=== PATIENT | female | born 1940 | race Caucasian/White ===

== ENCOUNTER 2017-11-30 13:23 | Emergency (ER) | payer OTHER, MEDICARE ==
[2017-11-30] MEDS ORDERED: ALBUTEROL 2.5 MG/3 ML NEB SOL ONE (14:07)
[2017-11-30] MEDS ORDERED: METHYLPREDNISOLONE 125 MG INJ ONE (14:07)
[2017-11-30] MEDS ORDERED: IPRATROPIUM BROM 0.5MG/2.5ML ONE (14:07)
--- NOTE | 2017-11-30 14:34 | RAD REPORT ---
EXAM DESCRIPTION: US - Extrem Venous W Compress Omar - 11/30/2017 2:18 pm CLINICAL HISTORY: Chest pain, shortness of breath, leg pain and swelling COMPARISON: None. TECHNIQUE: Real-time sonographic evaluation of the bilateral lower extremity common femoral, superfi cial femoral, popliteal and posterior tibial veins was performed. FINDINGS: Normal compressibility, flow augmentation, phasic flow and spontaneous flow are identified in the left and right lower extremity common femoral, superficial femoral, popliteal and posterior t ibial veins. No intraluminal filling defects seen. IMPRESSION: No DVT in either lower extremity.
--- NOTE | 2017-11-30 14:38 | RAD REPORT ---
EXAM DESCRIPTION: RAD - Chest Single View - 11/30/2017 2:11 pm CLINICAL HISTORY: Shortness of breath, left arm pain COMPARISON: December 2016 TECHNIQUE: AP portable chest image was obtained 1404 hours . FINDINGS: Lung volumes are low similar to the comparison. Very extensive interstitial lung disease i s present. There is an alveolar component in the mid left lung field. Overall pattern is not substant ially different from the comparison. Interstitial edema and infiltrate are both easily masked with th is extent of chronic disease. Heart and vasculature are normal. No measurable pleural effusion and no pneumothorax. No acute bony abnormality seen. No acute aortic findings suspected. IMPRESSION: Very extensive interstitial lung disease throughout both lung [place]. Pattern is not substantially different from comparison.
[2017-11-30 14:39] LABS: ALT/SGPT 31 U/L (12-78); AST/SGOT 28 U/L (15-37); Albumin 2.7 g/dL (3.4-5.0); Alkaline Phosphatase 97 U/L (45-117); BUN Blood Urea Nitrogen 16 mg/dL (7-18); Bicarbonate 37 mmol/L (21-32); Bilirubin Direct 0.2 mg/dL (0-0.2); Bilirubin Total 0.4 mg/dL (0.2-1.0); Glucose Level 137 mg/dL (74-106); Magnesium 2.3 mg/dL (1.8-2.4); NT PRO-BNP 2868 pg/mL (<450); Potassium 3.7 mmol/L (3.5-5.1); Protein, Total 7.2 g/dL (6.4-8.2); Sodium Level 142 mmol/L (136-145); Troponin (Emerg Dept Use Only) < 0.02 ng/mL (0.0-0.045)
[2017-11-30 14:44] LABS: Protime INR 1.16
[2017-11-30 15:17] LABS: Absolute Lymphocytes (CBC) 1.6 K/uL (0.7-4.9); Absolute Monocytes 0.7 K/uL (0.1-1.3); Absolute Neutrophil 10.3 K/uL (1.8-8.0); Basophils % 0.4 % (0-1.3); Eosinophils % 1.4 % (0-4.4); Lymphocytes % 12.8 % (15.3-44.8); MCH 25.2 pg (27.0-35.0); MCV 83.3 fL (80-100); MPV 8.7 fL (7.6-11.3); Monocytes % 5.7 % (3.3-12.3); RBC Red Blood Cell Count 4.68 M/uL (3.86-4.86)
[2017-11-30 15:34] LABS: Platelet Estimate ADEQ; Urine White Blood Cell Casts OK
[2017-11-30] MEDS ORDERED: ACETAMINOPHEN 325 MG TABLET ONE (15:34)
[2017-11-30 15:35] LABS: Anisocytosis 3+; Blood Morphology Comment NOTED (NOT SEEN); Macrocytosis 1+; Ovalocytes 1+; Poikilocytosis 2+; Polychromasia SLIGHT; Spherocyte FEW
--- NOTE | 2017-11-30 16:26 | ER ---
Nurse's Notes [facility] Name: Becca Parada Age: 77 yrs Sex: Female : 1940 Arrival Date: 11/30/2017 Time: 13:24 Bed 28 Private MD: Ross Bryan T Diagnosis: Cellulitis of left lower limb;Chronic obstructive pulmonary disease with (acute) exacerbation Presentation: 11/30 13:29 Presenting complaint: Patient states: SOB x 3 days, BLE pain for months. Pt stated her sv O2 sat at home this morning was 79% and her daughter put her on a mask and it went up after. Transition of care: patient was not received from another setting of care. Onset of symptoms was November 27, 2017. Care prior to arrival: None. 13:29 Method Of Arrival: Wheelchair sv 13:29 Acuity: BEATRIZ 3 sv 14:10 Risk Assessment: Do you want to hurt yourself or someone else? Patient reports no iw desire to harm self or others. Initial Sepsis Screen: Does the patient meet any 2 criteria? No. Patient's initial sepsis screen is negative. Does the patient have a suspected source of infection? No. Patient's initial sepsis screen is negative. Triage Assessment: 15:00 Respiratory: Onset: The symptoms/episode began/occurred this morning. iw Historical: - Allergies: 13:30 Latex, Natural Rubber; sv - PMHx: 13:30 Arthritis; CAD; COPD, psorasis, HTN, arthritis; COPD; Hypertension; Myocardial sv infarction; Pneumonia; - PSHx: 13:30 Heart stents; Cholecystectomy; Hysterectomy; Appendectomy; sv - Immunization history:: Pneumococcal vaccine is up to date, Flu vaccine is up to date. - Social history:: Smoking status: Patient/guardian denies using tobacco. - Ebola Screening: : No symptoms or risks identified at this time. Screenin:09 Abuse screen: Denies threats or abuse. Denies injuries from another. Nutritional iw screening: No deficits noted. Tuberculosis screening: No symptoms or risk factors identified. Fall Risk IV access (20 points). Assessment: 14:07 General: Appears in no apparent distress. Behavior is calm, cooperative. Pain: iw Complains of pain in medial aspect of right calf and medial aspect of left calf. Neuro: Level of Consciousness is awake, alert, obeys commands, Oriented to person, place, time, Moves all extremities. Cardiovascular: Denies chest pain, Patient's skin is warm and dry. Edema is absent. Rhythm is sinus rhythm. Respiratory: Reports shortness of breath at rest on exertion cough that is productive, labored breathing Airway is patent Respiratory effort is even, labored, Respiratory pattern is tachypnea the patient has moderate shortness of breath. GI: Abdomen is non-distended, Abd is soft X 4 quads Patient currently denies diarrhea, nausea, vomiting. Derm: Skin is intact, is fragile, is thin. Musculoskeletal: Range of motion: intact in all extremities. 15:08 Reassessment: Patient appears in no apparent distress at this time. Respiratory: Airway iw is patent Respiratory effort is labored, Respiratory pattern is regular, symmetrical. 16:04 Reassessment: Patient appears in no apparent distress at this time. Patient and/or iw family updated on plan of care and expected duration. Pain level reassessed. Patient is alert, oriented x 3, equal unlabored respirations, skin warm/dry/pink. pt appears more relaxed, respirations even and unlabored Patient denies pain at this time. Patient states feeling better. Patient states symptoms have improved. 17:05 Reassessment: Patient appears in no apparent distress at this time. Patient and/or iw family updated on plan of care and expected duration. Pain level reassessed. Patient is alert, oriented x 3, equal unlabored respirations, skin warm/dry/pink. Dr. Monroy at bedside to discuss POC, pt will be discharged home, per Dr. Monroy. Vital Signs: 13:30 BP 116 / 73; Resp 21; Temp 97.1; Pulse Ox 95% on 3 lpm NC; Weight 50.35 kg; Height 5 sv ft. 2 in. (157.48 cm); Pain 0/10; 14:07 Pulse 89; iw 16:00 BP 115 / 99; Pulse 104; Resp 21 S; Pulse Ox 100% on 3 lpm NC; Pain 0/10; iw 13:30 Body Mass Index 20.30 (50.35 kg, 157.48 cm) sv ED Course: 13:24 Patient arrived in ED. as 13:24 Ross Bryan MD is Private Physician. as 13:30 Triage completed. sv 13:31 Arm band placed on. sv 13:32 Luke Lopez PA is PHCP. jmm 13:32 Teo Parkinson MD is Attending Physician. m 13:33 Kathy Santiago, RN is Primary Nurse. iw 14:02 EKG done, by animal tech. reviewed by Luke RUSSELL. 3 14:05 US Extremity Venous W Compression Omar In Process Unspecified. EDMS 14:09 X-ray completed. Portable x-ray completed in exam room. mh1 14:10 Patient has correct armband on for positive identification. iw 14:10 Inserted saline lock: 22 gauge in left antecubital area, using aseptic technique. Blood iw collected. 14:11 XRAY Chest (1 view) In Process Unspecified. EDMS 16:24 Rai Stein MD is Hospitalizing Provider. m 16:52 REPEAT EKG WAS DONE. 3 17:11 Ross Bryan MD is Referral Physician. m 17:28 No provider procedures requiring assistance completed. IV discontinued, intact, iw bleeding controlled, No redness/swelling at site. Pressure dressing applied. Administered Medications: 14:05 Drug: DuoNeb (3:1) (2.5 mg - 0.5 mg) 3 ml Route: Nebulizer; iw 15:00 Follow up: Response: No adverse reaction; Wheezing diminished iw 14:05 Drug: SOLU-Medrol 125 mg Route: IVP; Site: left antecubital; iw 15:00 Follow up: Response: No adverse reaction iw 15:29 Drug: Tylenol 650 mg Route: PO; hb 16:30 Follow up: Response: No adverse reaction; Pain is decreased iw Outcome: 16:26 Decision to Hospitalize by Provider. [facility] 17:12 Discharge ordered by . m 17:27 Discharged to home via wheelchair, with family. iw 17:27 Condition: good 17:27 Discharge instructions given to patient, family, Instructed on discharge instructions, follow up and referral plans. medication usage, Demonstrated understanding of instructions, follow-up care, medications, Prescriptions given X 2. 17:29 Patient left the ED. iw Signatures: Dispatcher [employer] EDMS Rochelle Mukherjee RN RN sv Mickail, Joel, PA PA [facility] Deanna Guevara 1 Kassy Reynolds as Kathy Santiago RN RN Rae Hudson RN RN Nydia Meeks 3 Corrections: (The following items were deleted from the chart) 16:06 16:00 BP 115 / 99; Pulse 104bpm; Resp 21bpm; Spontaneous; Pain 0/10; iw iw
--- NOTE | 2017-11-30 16:26 | EDPHYS ---
Physician Documentation [facility] Name: Becca Parada Age: 77 yrs Sex: Female : 1940 Arrival Date: 11/30/2017 Time: 13:24 Bed 28 Private MD: Ross Bryan T ED Physician Teo Parkinson HPI: 11/30 13:41 This 77 yrs old Female presents to ER via Wheelchair with complaints of jmm Shortness Of Breath, Leg Pain. 13:41 The patient has shortness of breath at rest. Onset: The symptoms/episode began/occurred jmm gradually, 3 day(s) ago. Duration: The symptoms are continuous. The patient has experienced similar episodes in the past. This is a 77 year old female with a history of CAD, COPD, HTN, that presents to the ED with shortness of breath she attricbutes to COPD. Patient states home medication does not give relief. Patient denies chest pain but complains of months of pain to the lower legs bilaterally. . Historical: - Allergies: 13:30 Latex, Natural Rubber; sv - PMHx: 13:30 Arthritis; CAD; COPD, psorasis, HTN, arthritis; COPD; Hypertension; Myocardial sv infarction; Pneumonia; - PSHx: 13:30 Heart stents; Cholecystectomy; Hysterectomy; Appendectomy; sv - Immunization history:: Pneumococcal vaccine is up to date, Flu vaccine is up to date. - Social history:: Smoking status: Patient/guardian denies using tobacco. - Ebola Screening: : No symptoms or risks identified at this time. ROS: 13:41 Constitutional: Negative for fever, chills, and weight loss, Cardiovascular: Negative jm for chest pain, palpitations, and edema. 13:41 Respiratory: Positive for shortness of breath. 13:41 MS/extremity: Positive for pain. 13:41 All other systems are negative. Exam: 13:41 Head/Face: atraumatic. Chest/axilla: Normal chest wall appearance and motion. jmm 13:41 Constitutional: The patient appears in no acute distress, alert, awake. 13:41 Cardiovascular: Rate: normal, Rhythm: regular. 13:41 Respiratory: mild respiratory distress is noted, Respirations: normal, Breath sounds: are clear throughout. 13:41 Abdomen/GI: Inspection: abdomen appears normal, Bowel sounds: normal, Palpation: abdomen is soft and non-tender. 13:41 Skin: Appearance: Color: normal in color. 13:41 Neuro: Orientation: is normal, Mentation: is normal, Memory: is normal. 13:41 Psych: Behavior/mood is pleasant, cooperative. Vital Signs: 13:30 BP 116 / 73; Resp 21; Temp 97.1; Pulse Ox 95% on 3 lpm NC; Weight 50.35 kg; Height 5 sv ft. 2 in. (157.48 cm); Pain 0/10; 14:07 Pulse 89; iw 16:00 BP 115 / 99; Pulse 104; Resp 21 S; Pulse Ox 100% on 3 lpm NC; Pain 0/10; iw 13:30 Body Mass Index 20.30 (50.35 kg, 157.48 cm) sv MDM: 13:41 Patient medically screened. [facility] 13:41 Data reviewed: vital signs, nurses notes. [facility] 15:47 Data reviewed: lab test result(s), radiologic studies, plain films. [facility] 17:07 ED course: I discussed the patient with Dr. Monroy along with the need for admission. [facility] Dr. Monroy visited with the patient whom advises to discharge the patient with doxycycline 100 mg. . 17:07 Counseling: I had a detailed discussion with the patient and/or guardian regarding: the [facility] historical points, exam findings, and any diagnostic results supporting the discharge/admit diagnosis, lab results, radiology results, the need for outpatient follow up, to return to the emergency department if symptoms worsen or persist or if there are any questions or concerns that arise at home. 17:07 Response to treatment: the patient's symptoms have mildly improved after treatment. [facility] 11/30 13:41 Order name: Basic Metabolic Panel [facility] 11/30 13:41 Order name: CBC with Diff; Complete Time: 15:38 [facility] 11/30 13:41 Order name: LFT's; Complete Time: 14:40 [facility] 11/30 13:41 Order name: Magnesium; Complete Time: 14:40 [facility] 11/30 13:41 Order name: NT PRO-BNP; Complete Time: 14:40 [facility] 11/30 13:41 Order name: PT-INR; Complete Time: 15:14 [facility] 11/30 13:41 Order name: Troponin (emerg Dept Use Only); Complete Time: 14:40 [facility] 11/30 13:41 Order name: XRAY Chest (1 view); Complete Time: 14:40 [facility] 11/30 13:42 Order name: Basic Metabolic Panel; Complete Time: 14:40 EDNM 11/30 13:50 Order name: US Extremity Venous W Compression Omar; Complete Time: 14:36 [facility] 11/30 14:28 Order name: Occult Blood--Ancillary; Complete Time: 15:49 eb 11/30 15:21 Order name: CBC Smear Scan; Complete Time: 15:38 EDMS 11/30 13:41 Order name: EKG; Complete Time: 13:42 [facility] 11/30 13:41 Order name: Cardiac monitoring; Complete Time: 14:28 [facility] 11/30 13:41 Order name: EKG - Nurse/Tech; Complete Time: 14:05 [facility] 11/30 13:41 Order name: IV Saline Lock; Complete Time: 14:05 [facility] 11/30 13:41 Order name: Labs collected and sent; Complete Time: 14:06 [facility] 11/30 13:41 Order name: O2 Per Protocol; Complete Time: 14:06 [facility] 11/30 13:41 Order name: O2 Sat Monitoring; Complete Time: 14:06 [facility] 11/30 15:43 Order name: EKG - Nurse/Tech; Complete Time: 16:49 jmm Administered Medications: 14:05 Drug: DuoNeb (3:1) (2.5 mg - 0.5 mg) 3 ml Route: Nebulizer; iw 15:00 Follow up: Response: No adverse reaction; Wheezing diminished iw 14:05 Drug: SOLU-Medrol 125 mg Route: IVP; Site: left antecubital; iw 15:00 Follow up: Response: No adverse reaction iw 15:29 Drug: Tylenol 650 mg Route: PO; hb 16:30 Follow up: Response: No adverse reaction; Pain is decreased iw Disposition: 11/30/17 17:12 Discharged to Home. Impression: Cellulitis of left lower limb, Chronic obstructive pulmonary disease with (acute) exacerbation. - Condition is Stable. - Discharge Instructions: Cellulitis, Adult, Chronic Obstructive Pulmonary Disease Exacerbation. - Prescriptions for Prednisone 20 mg Oral Tablet - take 3 tablet by ORAL route once daily for 5 days; 15 tablet. Doxycycline Hyclate 100 mg Oral Tablet - take 1 tablet by ORAL route every 12 hours; 20 tablet. - Medication Reconciliation Form, Thank You Letter, Antibiotic Education, Prescription Opioid Use form. - Follow up: Ross Bryan MD; When: Tomorrow; Reason: Recheck today's complaints, Continuance of care, Re-evaluation by your physician. Addendum: 12/02/2017 13:29 Co-signature as Attending Physician, Teo Parkinson MD I agree with the assessment and k dr plan of care. Signatures: Dispatcher [employer] EDMS Rochelle Mukherjee, RN RN Teo Parkinson MD MD [facility] Luke Lopez PA PA [facility] Kathy Santiago RN RN Rae Hudson RN RN Corrections: (The following items were deleted from the chart) 11/30 17:08 16:23 ED course: I discussed the patient with Dr. Stein whom accepted admission. . [facility] 17: 16:26 Hospitalization Ordered by Rai Stein MD for Observation. Preliminary diagnosis [facility] is Chronic obstructive pulmonary disease with (acute) exacerbation; Cellulitis of left lower limb. Bed requested for Telemetry/MedSurg (observation). Status is Observation. Condition is Stable. Problem is an acute exacerbation. Symptoms are unchanged. UTI on Admission? No. [facility] 17:29 17:12 11/30/2017 17:12 Discharged to Home. Impression: Cellulitis of left lower limb; iw Chronic obstructive pulmonary disease with (acute) exacerbation. Condition is Stable. Forms are Medication Reconciliation Form, Thank You Letter, Antibiotic Education, Prescription Opioid Use. Follow up: Ross Bryan; When: Tomorrow; Reason: Recheck today's complaints, Continuance of care, Re-evaluation by your physician. [facility]
--- NOTE | 2017-11-30 16:52 | EKG ---
Test Date: 2017-11-30 Test Time: 13:51:20 Towel Hemmer: PANCHO MEASUREMENT RESULTS: Intervals: Rate: 100 LA: 124 QRSD: 78 QT: 350 QTc: 451 [place]: P: 10 LA: 124 QRS: -34 T: -1 INTERPRETIVE STATEMENTS: Sinus rhythm with premature atrial complexes with aberrant conduction Left axis deviation Pulmonary disease pattern Nonspecific ST and T wave abnormality Abnormal ECG Compared to ECG 01/16/2017 22:21:10 Sinus tachycardia no longer present ST (T wave) deviation still present Electronically Signed On 11-30-17 16:51:38 CDT by Yrn Rivera
[2017-11-30 17:39] VITALS: TEMP 97.1
[2017-11-30 17:41] VITALS: BP 115/99; O2SAT 100
--- NOTE | 2017-12-01 08:16 | EKG ---
Test Date: 2017-11-30 Test Time: 16:32:08 [employer]: PANCHO MEASUREMENT RESULTS: Intervals: Rate: 102 ID: [id number] QRSD: 80 QT: 338 QTc: 440 [place]: P: 25 ID: [id number] QRS: -33 T: 76 INTERPRETIVE STATEMENTS: Sinus tachycardia with occasional premature ventricular complexes Left axis deviation Pulmonary disease pattern Nonspecific ST abnormality Abnormal ECG Compared to ECG 11/30/2017 13:51:20 Ventricular premature complex(es) now present Sinus rhythm no longer present Atrial premature complex(es) no longer present Electronically Signed On 12-01-17 08:15:18 CDT by Yrn Rivera
== END 2017-11-30 17:29 | disposition home or self-care (01) ==
LOC: ER 13:23 → UNDOADMOB 16:28 → ERHOLD 16:28
DX: J44.1 Chronic obstructive pulmonary disease with (acute) exacerbation (principal); L03.116 Cellulitis of left lower limb; I10 Essential (primary) hypertension; I25.2 Old myocardial infarction; Z95.818 Presence of other cardiac implants and grafts; Z91.040 Latex allergy status; Z91.048 Other nonmedicinal substance allergy status
CPT/HCPCS: 36415; 71045; 80048; 80076; 82272; 83735; 83880; 84484; 85025; 85610; 93005 ×2; 93970; 94640; 96374; 99285; J2930

== ENCOUNTER 2017-12-11 11:36 | Inpatient (IN) | payer OTHER, MEDICARE ==
[2017-12-11] MEDS ORDERED: METOPROLOL TARTRATE 5 MG/5 ML INJ IV ONE ×2 (12:00→13:52)
[2017-12-11] MEDS ORDERED: IPRATROPIUM BROM 0.5MG/2.5ML ONE (12:10)
[2017-12-11] MEDS ORDERED: ALBUTEROL 2.5 MG/3 ML NEB SOL ONE (12:10)
[2017-12-11 12:23] LABS: Absolute Lymphocytes (CBC) 0.6 K/uL (0.7-4.9); Absolute Monocytes 0.8 K/uL (0.1-1.3); Absolute Neutrophil 20.8 K/uL (1.8-8.0); Basophils % 0.2 % (0-1.3); Eosinophils % 0.2 % (0-4.4); Hematocrit 39.6 % (36.0-45.0); Lymphocytes % 2.8 % (15.3-44.8); MCH 26.3 pg (27.0-35.0); MCV 83.6 fL (80-100); MPV 8.5 fL (7.6-11.3); Monocytes % 3.4 % (3.3-12.3); RBC Red Blood Cell Count 4.74 M/uL (3.86-4.86)
[2017-12-11 12:27] LABS: Protime INR 1.18
[2017-12-11 12:33] LABS: Arterial Blood Carboxyhemoglob 1.4 % (0-1.5); Blood Gas Oxyhemoglobin 92.7 % (94-97); Blood O2 Saturation 94.9 % (92-98.5)
--- NOTE | 2017-12-11 12:33 | RAD REPORT ---
EXAM DESCRIPTION: Sunday Single View12/11/2017 12:27 pm CLINICAL HISTORY: Shortness of breath COMPARISON: November 30, 2017 FINDINGS: Extensive bilateral pulmonary opacities appear minimally improved since the prior exam. T he heart is mildly enlarged IMPRESSION: Minimal improvement in extensive bilateral pulmonary opacities. I suspect that most if not all of this is chronic.
[2017-12-11 12:39] LABS: Albumin 2.9 g/dL (3.4-5.0); Bilirubin Direct 0.2 mg/dL (0-0.2); Bilirubin Total 0.6 mg/dL (0.2-1.0); Magnesium 2.2 mg/dL (1.8-2.4); Potassium 3.1 mmol/L (3.5-5.1); Protein, Total 7.1 g/dL (6.4-8.2); Troponin (Emerg Dept Use Only) 0.03 ng/mL (0.0-0.045)
[2017-12-11] MEDS ORDERED: FUROSEMIDE 20 MG/ 2ML VIAL ONE (13:51)
[2017-12-11] MEDS ORDERED: POTASSIUM 25 MEQ EFFERV TAB ONE (13:52)
[2017-12-11 14:32] LABS: Anisocytosis 2+; Blood Morphology Comment NOTED (NOT SEEN); Ovalocytes 2+; Platelet Estimate INCR; Urine White Blood Cell Casts OK
[2017-12-11] MEDS ORDERED: SODIUM CHLORIDE 0.9% 10ML INJ IV PRN (14:57)
[2017-12-11] MEDS ORDERED: IPRATROPIUM BROM 0.5MG/2.5ML NEB PRN (14:57)
[2017-12-11] MEDS ORDERED: ONDANSETRON 4 MG/2 ML VIAL IV PRN (14:57)
[2017-12-11] MEDS ORDERED: ALBUTEROL 2.5 MG/3 ML NEB SOL NEB PRN (14:57)
--- NOTE | 2017-12-11 15:14 | EDPHYS ---
Physician Documentation [facility] Name: Becca Parada Age: 77 yrs Sex: Female : 1940 Arrival Date: 12/11/2017 Time: 11:39 Bed 20 Private MD: ED Physician Go Clarke HPI: 12/11 15:51 This 77 yrs old Female presents to ER via EMS with complaints of Shortness Of gs Breath. 15:51 Onset: The symptoms/episode began/occurred acutely. Duration: The symptoms are gs continuous. The patient's shortness of breath has no apparent modifying factors. Associated signs and symptoms: Pertinent positives: dizziness, Pertinent negatives: fever. Severity of symptoms: At their worst the symptoms were severe in the emergency department the symptoms are unchanged. The patient has experienced similar episodes in the past, a few times. The patient has not recently seen a physician. Historical: - Allergies: 12:15 Latex, Natural Rubber; bp - Home Meds: 12:15 aspirin 81 mg Oral tab once daily [Active]; furosemide 80 mg Oral tab 1 tab once daily bp [Active]; Home O2 [Active]; ipratropium bromide 0.02 % inhalation soln 2.5 mL 4 times per day [Active]; Lipitor 10 mg Oral tab 1 tab once daily [Active]; metoprolol tartrate 50 mg Oral tab 1 tab once daily [Active]; Mucinex DM 30-600 mg Oral Tb12 1 tab every 12 hours [Active]; Nasonex 50 mcg/actuation Nasal spry 2 sprays once daily [Active]; pantoprazole 40 mg Oral TbEC 1 tab once daily [Active]; Perforomist 20 mcg/2 mL inhalation nebu 2 mL 2 times per day [Active]; prednisone 10 mg Oral tab 1 tab once daily [Active]; ProAir HFA inhalation 2 puffs every 6 hours [Active]; Spiriva with HandiHaler 18 mcg inhalation CpDv 1 cap once daily [Active]; theophylline 300 mg Oral Tb12 1 tab every 12 hours [Active]; spironolactone 25 mg Oral tab 2 tabs 2 times per day [Active]; - PMHx: 12:15 Arthritis; CAD; COPD; Hypertension; Myocardial infarction; Pneumonia; PULMONARY bp FIBROSIS; - Immunization history:: Adult Immunizations up to date. - Social history:: Smoking status: Patient/guardian denies using tobacco. - Ebola Screening: : Patient negative for fever greater than or equal to 101.5 degrees Fahrenheit, and additional compatible Ebola Virus Disease symptoms Patient denies exposure to infectious person Patient denies travel to an Ebola-affected area in the 21 days before illness onset No symptoms or risks identified at this time. ROS: 15:51 All other systems are negative. gs Exam: 15:51 Head/Face: Normocephalic, atraumatic. Eyes: Pupils equal round and reactive to light, gs extra-ocular motions intact. Lids and lashes normal. Conjunctiva and sclera are non-icteric and not injected. Cornea within normal limits. Periorbital areas with no swelling, redness, or edema. ENT: Nares patent. No nasal discharge, no septal abnormalities noted. Tympanic membranes are normal and external auditory canals are clear. Oropharynx with no redness, swelling, or masses, exudates, or evidence of obstruction, uvula midline. Mucous membranes moist. Neck: Trachea midline, no thyromegaly or masses palpated, and no cervical lymphadenopathy. Supple, full range of motion without nuchal rigidity, or vertebral point tenderness. No Meningismus. Chest/axilla: Normal chest wall appearance and motion. Nontender with no deformity. No lesions are appreciated. 15:51 Abdomen/GI: Soft, non-tender, with normal bowel sounds. No distension or tympany. No guarding or rebound. No evidence of tenderness throughout. Back: No spinal tenderness. No costovertebral tenderness. Full range of motion. Skin: Warm, dry with normal turgor. Normal color with no rashes, no lesions, and no evidence of cellulitis. MS/ Extremity: Pulses equal, no cyanosis. Neurovascular intact. Full, normal range of motion. Neuro: Awake and alert, GCS 15, oriented to person, place, time, and situation. Cranial nerves II-XII grossly intact. Motor strength 5/5 in all extremities. Sensory grossly intact. Cerebellar exam normal. Normal gait. 15:51 Constitutional: The patient appears alert, awake, in obvious distress, severely distressed. 15:51 Cardiovascular: Rate: tachycardic, Rhythm: irregular, Pulses: no pulse deficits are appreciated, Edema: is not appreciated. 15:51 ECG was reviewed by the Attending Physician. 15:51 Respiratory: severe repiratory distress is noted, Respirations: labored breathing, intercostal retractions, Breath sounds: rales, that are moderate, are scattered. Vital Signs: 11:59 BP 153 / 71; Pulse 148; Resp 36; Temp 97.6; Pulse Ox 89% on R/A; Weight 68.04 kg; bp 12:41 BP 127 / 99; Pulse 131; Resp 33; Pulse Ox 97% ; bp 14:11 BP 132 / 77; Pulse 131; Resp 31; Pulse Ox 95% on 2 lpm NC; bp 14:44 BP 136 / 91; Pulse 124; Resp 41; Pulse Ox 94% on 2 lpm NC; bp 15:59 BP 123 / 74; Pulse 110; Resp 27; Pulse Ox 96% on 2 lpm NC; bp MDM: 11:51 Patient medically screened. gs 15:51 Differential diagnosis: CHF exacerbation, Chronic Obstructive Pulmonary Disease gs pneumonia, pulmonary edema. Data reviewed: vital signs, nurses notes. 12/11 11:53 Order name: Basic Metabolic Panel; Complete Time: 13:35 gs 12/11 11:53 Order name: CBC with Diff; Complete Time: 14:36 12/11 11:53 Order name: LFT's; Complete Time: 13:35 gs 12/11 11:53 Order name: Magnesium; Complete Time: 13:35 gs 12/11 11:53 Order name: NT PRO-BNP; Complete Time: 13:35 gs 12/11 11:53 Order name: PT-INR; Complete Time: 13:35 12/11 11:53 Order name: Troponin (emerg Dept Use Only); Complete Time: 13:35 12/11 11:53 Order name: ABG; Complete Time: 13:35 12/11 12:01 Order name: Lactate; Complete Time: 14:36 bp 12/11 12:38 Order name: CBC Smear Scan; Complete Time: 14:36 EDMS 12/11 15:08 Order name: Basic Metabolic Panel [facility]SC 12/11 15:08 Order name: Basic Metabolic Panel [facility] 12/11 15:08 Order name: Basic Metabolic Panel [facility] 12/11 15:08 Order name: Basic Metabolic Panel [facility] 12/11 15:08 Order name: CKMB Creatine Kinase MB [facility] 12/11 15:08 Order name: CKMB Creatine Kinase MB [facility] 12/11 15:08 Order name: CKMB Creatine Kinase MB [facility] 12/11 15:08 Order name: Creatine Phosphokinase [facility] 12/11 15:08 Order name: Creatine Phosphokinase [facility] 12/11 15:08 Order name: Lipid Profile [facility] 12/11 15:08 Order name: Lipid Profile [facility] 12/11 15:08 Order name: Magnesium [facility] 12/11 15:08 Order name: Magnesium [facility] 12/11 15:08 Order name: Magnesium [facility] 12/11 15:08 Order name: Blood Culture [facility] 12/11 15:08 Order name: Urine Culture [facility] 12/11 15:08 Order name: Sputum Culture [facility] 12/11 15:09 Order name: Theophylline Level [facility] 12/11 15:09 Order name: T4 Free [facility] 12/11 15:09 Order name: Thyroid Stimulating Hormone [facility] 12/11 11:53 Order name: XRAY Chest (1 view); Complete Time: 12:39 12/11 11:53 Order name: EKG; Complete Time: 11:54 12/11 11:53 Order name: Cardiac monitoring; Complete Time: 11:56 12/11 11:53 Order name: EKG - Nurse/Tech; Complete Time: 12:10 12/11 11:53 Order name: IV Saline Lock; Complete Time: 11:56 12/11 11:53 Order name: Labs collected and sent; Complete Time: 12:10 12/11 11:53 Order name: O2 Per Protocol; Complete Time: 11:56 12/11 11:53 Order name: O2 Sat Monitoring; Complete Time: 11:56 12/11 12:56 Order name: Labs - recollect needed: Lactate; Complete Time: 13:07 12/11 15:09 Order name: CONS Pharmacy Consult [facility] 12/11 15:09 Order name: CONS Physician Consult [facility] 12/11 15:09 Order name: CONS Physician Consult [facility] 12/11 15:09 Order name: Respiratory Therapy Consult [facility] 12/11 15:09 Order name: Heart Healthy [facility] 12/11 15:09 Order name: Troponin I [facility] 12/11 15:15 Order name: Social Service Consult [facility] EC:51 Rate is 110 beats/min. Rhythm is irregular. Clinical impression: irr irr looks like gs afib but some qrs appear to have p waves some do not. Interpreted by me. Administered Medications: 11:57 Drug: Lopressor 5 mg Route: IVP; Site: right wrist; bp 12:10 Follow up: Response: No adverse reaction bp 12:10 Drug: Albuterol 2.5 mg Route: Inhalation; bp 12:10 Drug: AtroVENT Aerosol 0.5 mg Route: Inhalation; bp 13:50 Drug: Lopressor 5 mg Route: IVP; Site: left hand; bp 16:00 Follow up: Response: No adverse reaction bp 13:50 Drug: Potassium Effervescent Tablet 50 mEq Route: PO; bp 16:01 Follow up: Response: No adverse reaction bp 13:50 Drug: Lasix 20 mg Route: IVP; Site: left hand; bp 16:01 Follow up: Response: No adverse reaction bp Disposition: 15:51 Critical Care:. gs Disposition: 12/11/17 15:11 Hospitalization ordered by Tremayne Rhodes for Inpatient Admission. Preliminary diagnosis are Paroxysmal atrial fibrillation, Systolic (congestive) heart failure. - Bed requested for Telemetry/MedSurg (Inpatient). - Status is Inpatient Admission. bp - Condition is Stable. - Problem is new. - Symptoms have improved. UTI on Admission? No Critical care time excluding procedures: 15:51 Critical care time: Bedside Care: 10 minutes, Consultation: 10 minutes, Family gs Intervention: 10 minutes. Total time: 30 minutes Signatures: Dispatcher [employer] EDMS Nahomy Chan Irene, RN RN Go Clarke MD MD gs Peltier, Brian, RN RN bp Corrections: (The following items were deleted from the chart) 15:49 15:11 Hospitalization Ordered by Tremayne Rhodes DO for Inpatient Admission. Preliminary bd diagnosis is Paroxysmal atrial fibrillation; Systolic (congestive) heart failure. Bed requested for Telemetry/MedSurg (Inpatient). Status is Inpatient Admission. Condition is Stable. Problem is new. Symptoms have improved. UTI on Admission? No. gs 17:34 15:49 12/11/2017 15:11 Hospitalization Ordered by Tremayne Rhodes DO for Inpatient bp Admission. Preliminary diagnosis is Paroxysmal atrial fibrillation; Systolic (congestive) heart failure. Bed requested for Telemetry/MedSurg (Inpatient). Status is Inpatient Admission. Condition is Stable. Problem is new. Symptoms have improved. UTI on Admission? No. bd
--- NOTE | 2017-12-11 15:14 | ER ---
Nurse's Notes [facility] Name: Becca Parada Age: 77 yrs Sex: Female : 1940 Arrival Date: 12/11/2017 Time: 11:39 Bed 20 Private MD: Diagnosis: Paroxysmal atrial fibrillation;Systolic (congestive) heart failure Presentation: 12/11 11:42 Presenting complaint: EMS states: SHORTNESS OF BREATH AND NAUSEA/VOMITING. Transition bp of care: patient was not received from another setting of care. Onset of symptoms is unknown. Risk Assessment: Do you want to hurt yourself or someone else? Patient reports no desire to harm self or others. Initial Sepsis Screen: Does the patient meet any 2 criteria? HR > 90 bpm. Does the patient have a suspected source of infection? No. Patient's initial sepsis screen is negative. Care prior to arrival: None. 11:42 Method Of Arrival: EMS: [facility] bp 11:42 Acuity: BEATRIZ 2 bp Triage Assessment: 11:42 General: Appears distressed, uncomfortable, Behavior is cooperative, appropriate for bp age, anxious. Pain: Denies pain. Cardiovascular: Rhythm is atrial fibrillation with rapid ventricular response. Respiratory: Reports shortness of breath cough that is productive, Onset: The symptoms/episode began/occurred this morning, the patient has mild shortness of breath. Historical: - Allergies: 12:15 Latex, Natural Rubber; bp - Home Meds: 12:15 aspirin 81 mg Oral tab once daily [Active]; furosemide 80 mg Oral tab 1 tab once daily bp [Active]; Home O2 [Active]; ipratropium bromide 0.02 % inhalation soln 2.5 mL 4 times per day [Active]; Lipitor 10 mg Oral tab 1 tab once daily [Active]; metoprolol tartrate 50 mg Oral tab 1 tab once daily [Active]; Mucinex DM 30-600 mg Oral Tb12 1 tab every 12 hours [Active]; Nasonex 50 mcg/actuation Nasal spry 2 sprays once daily [Active]; pantoprazole 40 mg Oral TbEC 1 tab once daily [Active]; Perforomist 20 mcg/2 mL inhalation nebu 2 mL 2 times per day [Active]; prednisone 10 mg Oral tab 1 tab once daily [Active]; ProAir HFA inhalation 2 puffs every 6 hours [Active]; Spiriva with HandiHaler 18 mcg inhalation CpDv 1 cap once daily [Active]; theophylline 300 mg Oral Tb12 1 tab every 12 hours [Active]; spironolactone 25 mg Oral tab 2 tabs 2 times per day [Active]; - PMHx: 12:15 Arthritis; CAD; COPD; Hypertension; Myocardial infarction; Pneumonia; PULMONARY bp FIBROSIS; - Immunization history:: Adult Immunizations up to date. - Social history:: Smoking status: Patient/guardian denies using tobacco. - Ebola Screening: : Patient negative for fever greater than or equal to 101.5 degrees Fahrenheit, and additional compatible Ebola Virus Disease symptoms Patient denies exposure to infectious person Patient denies travel to an Ebola-affected area in the 21 days before illness onset No symptoms or risks identified at this time. Screenin:57 Abuse screen: Denies threats or abuse. Denies injuries from another. Nutritional bp screening: No deficits noted. Tuberculosis screening: No symptoms or risk factors identified. Fall Risk None identified. Assessment: 11:58 General: Appears distressed, uncomfortable, slender, Behavior is cooperative, bp appropriate for age, anxious. Pain: Denies pain. Neuro: Level of Consciousness is awake, alert, obeys commands, Oriented to person, place, time, situation, Appropriate for age. Cardiovascular: Rhythm is atrial fibrillation with rapid ventricular response. Respiratory: Airway is patent Respiratory effort is even, labored, Respiratory pattern is symmetrical, Breath sounds with crackles bilaterally. GI: No signs and/or symptoms were reported involving the gastrointestinal system. : No signs and/or symptoms were reported regarding the genitourinary system. EENT: No deficits noted. Derm: No deficits noted. Musculoskeletal: Circulation, motion, and sensation intact. Range of motion: intact in all extremities. 12:41 Reassessment: ALL CURRENT ORDERS COMPLETED, PT REMAINS IN AFIB. RESULTS PENDING. bp 14:10 Reassessment: ALL CURRENT ORDERS COMPLETED, DISPO PENDING. PT REMAINS IN LOW AFIB WITH bp RVR. 14:44 Reassessment: ADMIT MD AT B/S. bp 16:00 Reassessment: PHLEBOTOMY AT B/S, ADMIT BED PENDING. bp Vital Signs: 11:59 BP 153 / 71; Pulse 148; Resp 36; Temp 97.6; Pulse Ox 89% on R/A; Weight 68.04 kg; bp 12:41 BP 127 / 99; Pulse 131; Resp 33; Pulse Ox 97% ; bp 14:11 BP 132 / 77; Pulse 131; Resp 31; Pulse Ox 95% on 2 lpm NC; bp 14:44 BP 136 / 91; Pulse 124; Resp 41; Pulse Ox 94% on 2 lpm NC; bp 15:59 BP 123 / 74; Pulse 110; Resp 27; Pulse Ox 96% on 2 lpm NC; bp ED Course: 11:39 Patient arrived in ED. bp 11:43 Triage completed. bp 11:44 Go Clarke MD is Attending Physician. gs 11:48 Curly Donohue, KATHARINE is Primary Nurse. bp 11:49 Patient has correct armband on for positive identification. Placed in gown. Bed in low mh5 position. Call light in reach. Side rails up X2. Warm blanket given. spindraw operator on. Pulse ox on. NIBP on. 11:57 Inserted saline lock: 20 gauge in right wrist, using aseptic technique. Blood collected.bp 12:00 Arm band placed on. bp 12:11 Initial lab(s) drawn, by wv, sent to lab. Inserted saline lock: 22 gauge in left hand, jl7 using aseptic technique. Blood collected. 12:25 X-ray completed. Portable x-ray completed in exam room. Patient tolerated procedure mh1 well. 12:25 EKG done, by shop service technician. reviewed by Go Clarke MD. at1 12:28 XRAY Chest (1 view) In Process Unspecified. EDMS 13:06 Lab(s) recollected, sent to lab. 5 15:10 Tremayne Rhodes DO is Hospitalizing Provider. gs 17:07 No provider procedures requiring assistance completed. Patient admitted, IV remains in bp place. Administered Medications: 11:57 Drug: Lopressor 5 mg Route: IVP; Site: right wrist; bp 12:10 Follow up: Response: No adverse reaction bp 12:10 Drug: Albuterol 2.5 mg Route: Inhalation; bp 12:10 Drug: AtroVENT Aerosol 0.5 mg Route: Inhalation; bp 13:50 Drug: Lopressor 5 mg Route: IVP; Site: left hand; bp 16:00 Follow up: Response: No adverse reaction bp 13:50 Drug: Potassium Effervescent Tablet 50 mEq Route: PO; bp 16:01 Follow up: Response: No adverse reaction bp 13:50 Drug: Lasix 20 mg Route: IVP; Site: left hand; bp 16:01 Follow up: Response: No adverse reaction bp Outcome: 15:11 Decision to Hospitalize by Provider. 17:06 Admitted to Tele accompanied by tech, family with patient, via stretcher, room 419, bp with chart, Report called to EVON ALCANTAR 17:06 Condition: stable 17:06 Instructed on the need for admit. 17:34 Patient left the ED. bp Signatures: Dispatcher [employer] EDMS Deanna Guevara mh1 Juanita Segura, safety lead EKG Tat1 Nasima Reynolds5 Kirk Gallo, RN RN jl7 Go Clarke MD MD gs Peltier, Brian RN RN bp Corrections: (The following items were deleted from the chart) 16:18 16:00 Reassessment: PHLEBOTOMY AT B/S, ADMIT IN B/S bp bp
--- NOTE | 2017-12-11 15:15 | P.HP ---
Certification for Inpatient Patient admitted to: Inpatient With expected LOS: >2 Midnights Patient will require the following post-hospital care: Other (Skilled facility versus home) Practitioner: I am a practitioner with admitting privileges, knowledge of patient current condition, hospital course, and medical plan of care. Services: Services provided to patient in accordance with Admission requirements found in Title 42 Section 412.3 of the Code of Federal Regulations Patient History Date of Service: 12/11/17 Primary Care Provider: Dr. Bryan; Pulmonary-Dr. Pina, Cardiology-Dr. Carlson( [facility]) Reason for admission: Shortness of breath History of Present Illness: 77-year-old female presented to emergency room with shortness of breath. Patient with multiple medical problems including CHF, COPD, chronic steroid use, CAD with prior stent hypertension and hyperlipidemia. Over the last several days patient has been noticing increasing shortness of breath. She takes multiple medications for COPD. She is without relief. Patient denies any significant chest pain. Some palpitations noted. She reported some nausea. She also reports edema to the lower extremity. She came to the ER for evaluation. In the ER she is found to be in new onset atrial fibrillation with a rate around 130. Patient was given Lopressor. White count elevated at 22.3 with a hemoglobin of 12.5. Sodium 137, potassium 3.1, BUN of 24, creatinine 0.9 with a GFR 61. Glucose 126. Troponin unremarkable. BNP elevated at 3600. Lactate within normal range. Pro calcitonin pending. Chest x-ray showed possible bilateral opacity. Patient remained stable with treatment in the emergency room. Patient admitted for further treatment. When I saw the patient ER, she appeared stable. Daughter was at bedside. Patient reports no prior history of atrial fibrillation. Patient reports a history of CAD with prior stent. Patient takes multiple medications for COPD. She is steroid dependent. Allergies Latex, Natural Rubber Allergy (Mild, Verified 11/05/16 23:23) Hives/Rash Home medications list reviewed: Yes Home Medications: Albuterol Sulfate [Proair Hfa] 2 puff PO QIDP PRN 11/05/16 Aspirin Chewable [Aspirin Chewable*] 1 tab PO DAILY 11/05/16 Atorvastatin Calcium [Lipitor] 10 mg PO BEDTIME 11/05/16 Clopidogrel Bisulfate [Plavix*] 75 mg PO DAILY 11/05/16 Furosemide 1 tab PO DAILY 11/05/16 Ipratropium [place] 1 unit IH BID 11/05/16 Metoprolol Tartrate [Lopressor*] 1 tab PO DAILY 11/05/16 Pantoprazole Sodium 1 tab PO DAILY 11/05/16 Tiotropium [place] [Spiriva] 1 puff PO DAILY 11/05/16 Calcium Carbonate/Vitamin D3 [Calcium 500 + Vit D Caplet] 1 each PO DAILY Guaifenesin/Dextromethorphan [Mucinex Dm ER 1,200-60 mg Tab] 0.5 tab PO BID Mometasone Furoate [Nasonex] 2 spray NS DAILY 01/17/17 Performist 1 unit IH BID 01/17/17 Promethazine HCl/Codeine [Prometh-Codein 6.25-10 mg/5 ml] 5 ml PO TIDP PRN 01/17 levoFLOXacin [Levaquin*] 750 mg PO DAILY #7 tab 01/18/17 predniSONE [Prednisone*] 10 mg PO BID #20 tab 01/18/17 - Past Medical/Surgical History Diabetic: No -: CAD with HI w/ stent x2 01/13/2016 -: HTN -: COPD with steroid dependence -: Hyperlipidemia -: Arthritis -: Cataracts -: GERD -: CHF -: Former smoker -: Appendectomy -: Cholecystectomy -: Hysterectomy -: niles cataract sx Psychosocial/ Personal History: Patient lives with her son. She is a . She has 3 children. - Family History Father -: Hypertension, Liver disease, Kidney disease Notes: cirrohsis Mother -: Heart disease, Lung disease Notes: HI - Social History Smoking Status: Former smoker Alcohol use: No CD- Drugs: No Caffeine use: Yes Place of Residence: Home Review of Systems General: Weakness, Malaise, As per HPI Eyes: Unremarkable ENT: Nose Congestion, As per HPI Respiratory: Cough, Shortness of Breath, SOB with Excertion, Wheezing, As per HPI Cardiovascular: Palpitations, As per HPI Gastrointestinal: Nausea, Unremarkable Genitourinary: As per HPI Musculoskeletal: Pedal edema, As per HPI Integumentary: Unremarkable Neurological: Weakness, As per HPI Lymphatics: Unremarkable Physical Examination - Physical Exam General: Alert, Cooperative, Cachectic, Mild distress HEENT: Atraumatic, Normocephalic, Mucous membr. moist/pink Neck: Supple Respiratory: Expiratory wheezes (Bilateral) Cardiovascular: Irregular heart rate/rhythm (Atrial fibrillation rate 120-130) Gastrointestinal: Normal bowel sounds, Soft and benign, Non-distended, No tenderness, No masses, No rebound, No guarding Musculoskeletal: No erythema, No tenderness, No warmth Integumentary: No warmth, Tenderness/swelling (Edema to the feet bilateral) Neurological: Normal speech, Normal strength at 5/5 x4 extr, Normal tone, Normal affect - Studies Laboratory Data (last 24 hrs) 12/11/17 12:05: PT 13.9 H, INR 1.18 12/11/17 12:05: WBC 22.3 H* D, Hgb 12.5, Hct 39.6, Plt Count 427 H D 12/11/17 12:05: Sodium 137, Potassium 3.1 L, BUN 24 H, Creatinine 0.90, Glucose 126 H, Magnesium 2.2, Total Bilirubin 0.6, AST 23, ALT 24, Alkaline Phosphatase 91 Assessment and Plan - Plan Impression: Shortness of breath with acute on chronic respiratory failure secondary to COPD exacerbation and possible acute on chronic systolic CHF complicated with new onset atrial fibrillation and possible bilateral pneumonia CAD with prior stent Hypertension COPD with chronic steroid use Hyperlipidemia GERD Nausea Plan: Shortness of breath with acute on chronic respiratory failure secondary to COPD exacerbation and possible acute on chronic systolic CHF complicated with new onset atrial fibrillation and possible bilateral pneumonia: Patient will be admitted for further evaluation. Cardiology and pulmonology consulted. Will increase metoprolol to 50 mg twice daily. Will start Lovenox at 1 milligram/ kilogram subcu twice daily. Will check echocardiogram. Will continue with COPD treatment-IV steroids and medication. Will start IV Rocephin and Zithromax. Blood, urine, and sputum cultures obtained. Will also check for influenza. Will maintain sats above 90%. Pharmacy to monitor medication and adjust appropriately. Continue with IV Lasix 40 mg twice daily. Await further recommendations from pulmonology and Cardiology. CAD with prior stent: Will monitor cardiac enzymes. Will obtain echocardiogram. Hypertension: Metoprolol increased to twice daily. Monitor and adjust appropriately. COPD with chronic steroid use: Continue as above Hyperlipidemia: Will check lipid panel. Will continue with home medication. GERD: Will continue PPI. Nausea secondary to above: Will provide medication as needed. I will turn the service over to Dr. Monroy tomorrow. I will go over the plan of care with her. Discharge Plan: Other (group home facility vs home with HH) Plan to discharge in: Greater than 2 days - Advance Directives Does patient have a Living Will: No Does patient have a Durable POA for Healthcare: No - Code Status/Comfort Care Code Status Assessed: Yes (Patient is DNR) Time Spent Managing Pts Care (In Minutes): 55
[2017-12-11] MEDS ORDERED: CEFTRIAXONE/SWI 1gm 1 GM/10 ML SYR IVP SCH (16:00)
--- NOTE | 2017-12-11 16:21 | EKG ---
Test Date: 2017-12-11 Test Time: 12:09:15 Director Compliance: AGUSTIN MEASUREMENT RESULTS: Intervals: Rate: 110 MI: 120 QRSD: 84 QT: 348 QTc: 470 [place]: P: 33 MI: 120 QRS: -40 T: 3 INTERPRETIVE STATEMENTS: Sinus tachycardia with occasional premature atrial and ventricular complexes Left axis deviation Nonspecific ST and T wave abnormality Abnormal ECG Compared to ECG 11/30/2017 16:32:08 No significant changes Electronically Signed On 12-11-17 16:20:23 CDT by Yrn Rivera
[2017-12-11 16:33] LABS: Thyroid Stimulating Hormone 1.17 uIU/mL (0.360-3.740)
[2017-12-11] MEDS ORDERED: FUROSEMIDE 40 MG/4 ML VIAL IV SCH (17:00)
[2017-12-11] MEDS ORDERED: AZITHROMYCIN IV 250 MG in NA CHLORIDE 0.9% 250 ML IVPB SCH (17:00)
[2017-12-11] MEDS: METHYLPREDNISOLONE 125 MG INJ IV SCH ×2 (18:23→22:11)
[2017-12-11] MEDS: METOPROLOL XL 50 MG TAB PO SCH (18:39)
[2017-12-11 20:41] LABS: Troponin I 0.03 ng/mL (0.0-0.045)
[2017-12-11] MEDS: ARFORMOTEROL TARTRATE 15 MCG/2 ML VIAL.NEB NEB SCH (20:56)
[2017-12-11] MEDS: THEOPHYLLINE SR 100 MG TAB PO SCH (22:10)
[2017-12-11] MEDS: ACETAMINOPHEN 500 MG TAB PO PRN (22:11)
[2017-12-11] MEDS: ENOXAPARIN 80 MG/0.8 ML SQ SCH (22:11)
[2017-12-11] MEDS: ATORVASTATIN 10 MG TAB PO SCH (22:11)
[2017-12-12 04:21] LABS: Absolute Lymphocytes (CBC) 0.6 K/uL (0.7-4.9); Absolute Monocytes 0.1 K/uL (0.1-1.3); Absolute Neutrophil 9.9 K/uL (1.8-8.0); Basophils % 0.1 % (0-1.3); Hematocrit 37.2 % (36.0-45.0); Lymphocytes % 5.3 % (15.3-44.8); MCH 26.4 pg (27.0-35.0); MPV 8.2 fL (7.6-11.3); Monocytes % 1.2 % (3.3-12.3); RBC Red Blood Cell Count 4.37 M/uL (3.86-4.86)
[2017-12-12 04:35] LABS: Magnesium 2.5 mg/dL (1.8-2.4)
[2017-12-12 04:38] LABS: CKMB Creatine Kinase MB 2.5 ng/mL (0.3-3.6); Troponin I 0.02 ng/mL (0.0-0.045)
[2017-12-12] MEDS: METOPROLOL XL 50 MG TAB PO SCH ×2 (05:11→17:25)
[2017-12-12 05:33] LABS: Blood Morphology Comment NOTED (NOT SEEN); Ovalocytes 2+; Platelet Estimate ADEQ
[2017-12-12 06:01] VITALS: BMI 19.6
[2017-12-12 06:16] LABS: Urine Appearance CLOUDY; Urine Bilirubin NEGATIVE (NEG); Urine Blood NEGATIVE (NEG); Urine Color YELLOW; Urine Glucose NEGATIVE (NEG); Urine Protein NEGATIVE (NEG); Urine Urobilinogen 0.2 mg/dL (0.2-1.0); Urine pH 5.5 (5.0-7.0)
[2017-12-12 06:19] LABS: Urine Microscopic Reflex ORDER UMIC
[2017-12-12 06:57] LABS: Urine Bacteria 20-50 /HPF (<20); Urine Culture Reflex Order NOT NEEDED
[2017-12-12 06:58] LABS: Calcium Oxalate Crystals- Ur FEW (NONE SEEN); Urine RBC <5 /HPF (NONE SEEN)
[2017-12-12] MEDS: ARFORMOTEROL TARTRATE 15 MCG/2 ML VIAL.NEB NEB SCH ×2 (08:29→19:50)
--- NOTE | 2017-12-12 08:44 | P.CNS ---
Date of Consult: 12/12/17 Primary Care Provider: Dr. Bryan; Pulmonary-Dr. Pina, Cardiology-Dr. Carlson( [facility]) Chief Complaint: Shortness of breath History of Present Illness: Patient is 77 years of age with a history of COPD well known to me admitted with progressing shortness of breath and weakness for the past week patient has pulmonary fibrosis with intermittent exacerbations coughing up some productive sputum denies any chest pain or peripheral edema compliant with her medications at home Allergies Latex, Natural Rubber Allergy (Mild, Verified 11/05/16 23:23) Hives/Rash Home Medications: Albuterol Sulfate [Proair Hfa] 2 puff PO QIDP PRN 11/05/16 Aspirin Chewable [Aspirin Chewable*] 1 tab PO DAILY 11/05/16 Atorvastatin Calcium [Lipitor] 10 mg PO BEDTIME 11/05/16 Furosemide 1 tab PO DAILY 11/05/16 Ipratropium [place] 1 unit IH QID PRN 11/05/16 Metoprolol Tartrate [Lopressor*] 1 tab PO DAILY 11/05/16 Pantoprazole Sodium 1 tab PO DAILY 11/05/16 Tiotropium [place] [Spiriva] 1 puff PO DAILY 11/05/16 Calcium Carbonate/Vitamin D3 [Calcium 500 + Vit D Caplet] 1 each PO DAILY Guaifenesin/Dextromethorphan [Mucinex Dm ER 1,200-60 mg Tab] 0.5 tab PO BID Mometasone Furoate [Nasonex] 2 spray NS DAILY 01/17/17 Performist 1 unit IH BID 01/17/17 Promethazine HCl/Codeine [Prometh-Codein 6.25-10 mg/5 ml] 5 ml PO TIDP PRN 01/17 Doxycycline Hyclate 1 cap PO BID 12/12/17 Spironolactone 25 mg PO DAILY PRN 12/12/17 Theophylline [Antione-Dur] 300 mg PO BID 12/12/17 predniSONE [Prednisone*] 10 mg PO DAILY 12/12/17 - Past Medical/Surgical History Diabetic: No -: CAD with NV w/ stent x2 01/13/2016 -: HTN -: COPD with steroid dependence -: Hyperlipidemia -: Arthritis -: Cataracts -: GERD -: CHF -: Former smoker -: Appendectomy -: Cholecystectomy -: Hysterectomy -: niles cataract sx Psychosocial/ Personal History: Patient lives with her son. She is a . She has 3 children. - Family History Father Medical History: Hypertension, Liver disease, Kidney disease Notes: cirrohsis Mother Medical History: Heart disease, Lung disease Notes: NV - Social History Alcohol use: No CD- Drugs: No Caffeine use: Yes Place of Residence: Home Review of Systems 10-point ROS is otherwise unremarkable General: Weakness Respiratory: Cough, Shortness of Breath Physical Examination Temp Pulse Resp BP Pulse Ox 97.2 F 91 H 20 115/62 100 12/12/17 04:00 12/12/17 05:11 12/12/17 04:00 12/12/17 05:11 12/12/17 04:00 General: Alert, Oriented x3, Cooperative HEENT: Atraumatic Neck: Supple Respiratory: Crackles/rales, Expiratory wheezes Cardiovascular: No edema, Regular rate/rhythm Gastrointestinal: Normal bowel sounds, Soft and benign Laboratory Data (last 24 hrs) 12/11/17 12:05: PT 13.9 H, INR 1.18 12/11/17 12:05: WBC 22.3 H* D, Hgb 12.5, Hct 39.6, Plt Count 427 H D 12/11/17 12:05: Sodium 137, Potassium 3.1 L, BUN 24 H, Creatinine 0.90, Glucose 126 H, Magnesium 2.2, Total Bilirubin 0.6, AST 23, ALT 24, Alkaline Phosphatase 91 - Problems (1) COPD exacerbation Onset Date: 01/17/17 Current Visit: No Status: Acute Plan: Patient is 77 years of age admitted with a presumed COPD/IPF exacerbation. BNP is also elevated echocardiogram pending patient is on bronchodilators and Lasix at home admitted with new onset of AFib patient's oxygenation is satisfactory denies routine use echocardiogram pending started patient on some Levaquin chest x-ray shows some significant interstitial lung disease sputum culture patient's white count is now normal now in normal sinus rhythm
--- NOTE | 2017-12-12 08:47 | RAD REPORT ---
EXAM DESCRIPTION: RAD - Chest Single View - 12/12/2017 6:36 am CLINICAL HISTORY: follow up CHF/COPD Chest pain. COMPARISON: Chest Single View dated 12/11/2017; Chest Single View dated 11/30/2017; Chest Single Vie w dated 01/16/2017; Chest Single View dated 11/05/2016 FINDINGS: Portable technique limits examination quality. Extensive fibrotic changes throughout both lungs with reduced lung volumes. The heart is upper limit normal in size. No displaced fractures.Aortic atherosclerosis. IMPRESSION: Extensive pulmonary fibrosis suspected.
[2017-12-12] MEDS ORDERED: CEFTRIAXONE 1 GM/NS 50 ML 1 GM/50 ML BAG IV SCH (09:00)
[2017-12-12] MEDS ORDERED: TIOTROPIUM 5 SPRAYS/INHALER IH SCH (09:00)
[2017-12-12] MEDS: THEOPHYLLINE SR 100 MG TAB PO SCH ×2 (09:00→21:00)
[2017-12-12] MEDS: PANTOPRAZOLE 40 MG INJ IVP SCH (09:52)
[2017-12-12] MEDS: FUROSEMIDE 40 MG/4 ML VIAL IV SCH (09:53)
[2017-12-12] MEDS: ENOXAPARIN 80 MG/0.8 ML SQ SCH ×2 (09:55→21:40)
[2017-12-12] MEDS: METHYLPREDNISOLONE 40 MG INJ IV SCH ×3 (10:29→21:40)
[2017-12-12] MEDS: ACETAMINOPHEN 500 MG TAB PO PRN ×3 (10:29→21:39)
[2017-12-12] MEDS: levoFLOXacin 500 MG TAB PO SCH (10:30)
--- NOTE | 2017-12-12 12:43 | ECHO ---
HEIGHT: 5 ft 2 in WEIGHT: 107 lb 4.8 oz DATE OF STUDY: 12/12/[address]: Tremayne Rhodes DO 2-DIMENSIONAL: YES M.MODE: YES DOPPLER: YES COLOR FLOW: YES TDS: NO PORTABLE: NO DEFINITY: NO BUBBLE STUDY: NO DIAGNOSIS: EVALUATE FOR CONGESTIVE HEART FAILURE, NEW ONSET OF AFIB CARDIAC HISTORY: CATHERIZATION: NO SURGERY: NO PROSTHETIC VALVE: NO PACEMAKER: NO MEASUREMENTS (cm) DIASTOLIC (NORMALS) SYSTOLIC (NORMALS) IVSd 1.1 (0.6-1.2) LA Diam 4.0 (1.9-4.0) LVEF 40-45% LVIDd 4.5 (3.5-5.7) LVIDs 3.7 (2.0-3.5) %FS 18% LVPWd 1.1 (0.6-1.2) Ao Diam 2.5 (2.0-3.7) 2 DIMENSIONAL ASSESSMENT: RIGHT ATRIUM: NORMAL LEFT ATRIUM: NORMAL RIGHT VENTRICLE: NORMAL LEFT VENTRICLE: NORMAL TRICUSPID VALVE: NORMAL MITRAL VALVE: NORMAL PULMONIC VALVE: NORMAL AORTIC VALVE: SCLEROSIS PERICARDIAL EFFUSION: NONE AORTIC ROOT: NORMAL LEFT VENTRICULAR WALL MOTION: MILD GLOBAL HYPOKINESIS. DOPPLER/COLOR FLOW: MILD TRJICUSPID REGURGITATION NORMAL RIGHT VENTRICULAR SYSTOLIC PRESSURE. COMMENTS: MILD GLOBAL HYPOKINESIS. EJECTION FRACTION 40-45%. AORTIC SCLEROSIS. NO EFFUSION. TECHNOLOGIST: ALISON PIZANO
[2017-12-12] MEDS: IPRATROPIUM BROM 0.5MG/2.5ML NEB SCH ×2 (14:00→19:50)
--- NOTE | 2017-12-12 14:52 | P.PN ---
Subjective Date of Service: 12/12/17 Primary Care Provider: Dr. Bryan; Pulmonary-Dr. Pina, Cardiology-Dr. Carlson( [facility]) Chief Complaint: Shortness of breath Patient seen and examined at bedside with RN. Chart reviewed. Case discussed with cardiology at this time. Currently patient is getting echocardiogram done at bedside. No complaints to offer overnight. Has been doing well overall. States that hair shortness of breath has been getting better than before. Review of Systems 10-point ROS is otherwise unremarkable Physical Examination - Vital Signs Temperature: 98.1 F Blood Pressure: 116/87 Pulse: 76 Respirations: 24 Pulse Ox (%): 98 - Physical Exam General: Alert, In no apparent distress HEENT: Atraumatic, PERRLA, EOMI Neck: Supple, JVD not distended Respiratory: Clear to auscultation bilaterally, Normal air movement Cardiovascular: Regular rate/rhythm, Normal S1 S2 Gastrointestinal: Normal bowel sounds, No tenderness Musculoskeletal: No tenderness Integumentary: No rashes Neurological: Normal speech, Normal tone, Normal affect Lymphatics: No axilla or inguinal lymphadenopathy - Studies Medications List Reviewed: Yes Assessment And Plan - Current Problems (Diagnosis) (1) Acute and chronic respiratory failure Onset Date: 01/17/17 Current Visit: No Status: Acute Plan: Acute on chronic respiratory failure most likely secondary to COPD versus CHF exacerbation -currently saturating 90-92% on oxygen. Treat underlying condition -duo nebs, steroids, oxygen at this time. -pulmonology consulted. Recommendation appreciated at this time -IV Lasix, beta-isi, TALON-inhibitor continue at this time -development consultant at this time as well -echocardiogram is pending Qualifiers: Respiratory failure complication: hypoxia Qualified Code(s): J96.21 - Acute and chronic respiratory failure with hypoxia (2) CHF (congestive heart failure), NYHA class III Current Visit: Yes Status: Acute Plan: Acute on chronic CHF exacerbation. -IV Lasix at this time -restarted on home medication at this time -cardiology consulted. Awaiting recommendations -echo pending at this time Qualifiers: Congestive heart failure type: systolic Congestive heart failure chronicity : acute on chronic Qualified Code(s): I50.23 - Acute on chronic systolic ( congestive) heart failure (3) COPD exacerbation Onset Date: 01/17/17 Current Visit: No Status: Acute Plan: COPD exacerbation -units, steroids, oxygen at the time -pulmonology consulted. Appreciated recommendations this time (4) Atrial fibrillation, new onset Onset Date: 12/12/17 Current Visit: Yes Status: Acute Plan: New onset AFib at this time -currently on beta-isi -aspirin for anti coagulation -Will Consult with Cardiology for xarelto vs eliquis for Anticoagulation -CHADsVASC score is 3 mod High Risk (5) CAD (coronary artery disease) Onset Date: 01/17/17 Current Visit: No Status: Chronic Qualifiers: Coronary Disease-Associated Artery/Lesion type: [place] artery [place] vs. transplanted heart: [place] heart Associated angina: without angina Qualified Code(s): I25.10 - Atherosclerotic heart disease of [place] coronary artery without angina pectoris (6) Hyperlipidemia Onset Date: 12/12/17 Current Visit: Yes Status: Chronic Qualifiers: Hyperlipidemia type: mixed hyperlipidemia Qualified Code(s): E78.2 - Mixed hyperlipidemia (7) HTN (hypertension) Onset Date: 01/17/17 Current Visit: No Status: Chronic Qualifiers: Hypertension type: essential hypertension Qualified Code(s): I10 - Essential (primary) hypertension (8) GERD (gastroesophageal reflux disease) Onset Date: 12/12/17 Current Visit: Yes Status: Chronic Qualifiers: Esophagitis presence: without esophagitis Qualified Code(s): K21.9 - Gastro -esophageal reflux disease without esophagitis Discharge Plan: Home Plan to discharge in: 48 Hours - Code Status/Comfort Care Code Status Assessed: Yes Critical Care: No
[2017-12-12 18:17] LABS: Absolute Lymphocytes (CBC) 0.4 K/uL (0.7-4.9); Absolute Monocytes 0.4 K/uL (0.1-1.3); Absolute Neutrophil 14.2 K/uL (1.8-8.0); Basophils % 0.1 % (0-1.3); Hematocrit 37.8 % (36.0-45.0); Lymphocytes % 2.6 % (15.3-44.8); MCV 85.4 fL (80-100); MPV 8.5 fL (7.6-11.3); Monocytes % 2.5 % (3.3-12.3); RBC Red Blood Cell Count 4.43 M/uL (3.86-4.86)
[2017-12-12 18:39] LABS: Albumin 2.8 g/dL (3.4-5.0); Bilirubin Total 0.4 mg/dL (0.2-1.0); Potassium 3.4 mmol/L (3.5-5.1); Protein, Total 6.7 g/dL (6.4-8.2)
[2017-12-12 19:50] LABS: Anisocytosis 2+; Blood Morphology Comment NOTED (NOT SEEN); Ovalocytes 2+; Platelet Estimate ADEQ
[2017-12-12] MEDS: ATORVASTATIN 10 MG TAB PO SCH (21:39)
[2017-12-13] MEDS: IPRATROPIUM BROM 0.5MG/2.5ML NEB SCH ×4 (01:18→19:14)
[2017-12-13 04:40] LABS: Absolute Lymphocytes (CBC) 0.7 K/uL (0.7-4.9); Absolute Monocytes 0.4 K/uL (0.1-1.3); Absolute Neutrophil 12.9 K/uL (1.8-8.0); Basophils % 0.1 % (0-1.3); Hematocrit 35.8 % (36.0-45.0); Lymphocytes % 4.8 % (15.3-44.8); MCH 26.1 pg (27.0-35.0); MCV 84.1 fL (80-100); MPV 8.3 fL (7.6-11.3); Monocytes % 2.8 % (3.3-12.3); RBC Red Blood Cell Count 4.26 M/uL (3.86-4.86)
[2017-12-13 05:10] LABS: Magnesium 2.3 mg/dL (1.8-2.4); Potassium 4.9 mmol/L (3.5-5.1)
[2017-12-13] MEDS: METOPROLOL XL 50 MG TAB PO SCH ×2 (06:08→18:44)
[2017-12-13] MEDS: ARFORMOTEROL TARTRATE 15 MCG/2 ML VIAL.NEB NEB SCH ×2 (08:20→19:14)
--- NOTE | 2017-12-13 08:26 | CON ---
Date of Consultation: 12/12/2017 The patient was admitted on 12/11/[address] Rhodes. Reason For Consultation: Atrial fibrillation and possible acute on chronic diastolic congestive hear t failure. History Of Present Illness: Ms. Parada is a 77-year-old had an RCA stent about 2 years ago[address] sees [address] Carlson at [facility] issues. She also had yesterday severe COPD, on home oxygen. She has a history of hypertension, gastroesophageal reflux disease, pulmonary fibrosis , essentially pneumonia in the past. atrial fibrillation that has resolved. It was found then, her theophylline level was very high, over 30 her atrial fibrillation has resolved venous doppler that was negative. Chest x-ray showing pulmonary fibrosis . Allergies: SHE IS ALLERGIC TO LATEX AND NATURAL RUBBER. Review of Systems: Negative. Social History: Negative. Family History: Negative. Medications: At home . Physical Examination: O2 saturation adequate. GENERAL: In no acute distress . HEENT: Negative. Neck: Supple. No bruit. Chest: Revealed wheezing. Cardiac: Revealed regular rhythm and rate. No murmurs, gallops, rubs. Abdomen: Benign. Extremities: Revealed no clubbing, cyanosis, or edema. Impression And Plan: 1.Paroxysmal atrial fibrillation, secondary to theophylline toxicity. 2.Chronic obstructive pulmonary disease . 3.History of coronary artery disease, status post RCA stent 2 years ago, that seems to be stable. 4.Hypertension. 5.Gastroesophageal reflux disease. 6.Elevated white count, . Increase metoprolol as needed. . She will follow up with . ZULEYMA/GRECIA Voice ID: [id number] Report ID: [id number]
[2017-12-13] MEDS: THEOPHYLLINE SR 100 MG TAB PO SCH ×2 (09:00→23:07)
[2017-12-13] MEDS ORDERED: LEVALBUTEROL 0.63 MG/3 ML NEB NEB PRN (09:32)
[2017-12-13] MEDS: METHYLPREDNISOLONE 40 MG INJ IV SCH ×3 (09:54→21:52)
[2017-12-13] MEDS: PANTOPRAZOLE 40 MG INJ IVP SCH (09:54)
[2017-12-13] MEDS: FUROSEMIDE 40 MG/4 ML VIAL IV SCH (09:55)
[2017-12-13] MEDS: levoFLOXacin 500 MG TAB PO SCH (09:55)
[2017-12-13] MEDS: ACETAMINOPHEN 500 MG TAB PO PRN ×3 (09:55→23:07)
[2017-12-13] MEDS: ENOXAPARIN 80 MG/0.8 ML SQ SCH ×2 (09:56→21:52)
--- NOTE | 2017-12-13 12:21 | P.PN ---
Subjective Date of Service: 12/13/17 Primary Care Provider: Dr. Bryan; Pulmonary-Dr. Pina, Cardiology-Dr. Carlson( [facility]) Chief Complaint: Shortness of breath Patient seen and examined at bedside with RN. Chart reviewed. Case discussed with cardiology and pulmonology at this time at this time. No complaints to offer overnight. Has been doing well overall. Has been tachycardic since this morning. Heart rate of 110 to 120 Review of Systems 10-point ROS is otherwise unremarkable Physical Examination - Vital Signs Temperature: 97.3 F Blood Pressure: 140/80 Pulse: 105 Respirations: 24 Pulse Ox (%): 95 - Physical Exam General: Alert, In no apparent distress HEENT: Atraumatic, PERRLA, EOMI Neck: Supple, JVD not distended Respiratory: Clear to auscultation bilaterally, Normal air movement Cardiovascular: Normal S1 S2, Irregular heart rate/rhythm Gastrointestinal: Normal bowel sounds, No tenderness Musculoskeletal: No tenderness Integumentary: No rashes Neurological: Normal speech, Normal tone, Normal affect Lymphatics: No axilla or inguinal lymphadenopathy - Studies Medications List Reviewed: Yes Assessment And Plan - Current Problems (Diagnosis) (1) Acute and chronic respiratory failure Onset Date: 01/17/17 Current Visit: No Status: Acute Plan: Acute on chronic respiratory failure most likely secondary to COPD versus CHF exacerbation -currently saturating 90-92% on oxygen. Treat underlying condition -duo nebs, steroids, oxygen at this time. -pulmonology consulted. Recommendation appreciated at this time -IV Lasix, beta-isi, TALON-inhibitor continue at this time -hospice care sales consultant at this time as well -echocardiogram with no new changes -awaiting theophylline level at this time. Theophylline restarted after the level was within normal limits -will observe for next 24-48 hr if improvement was sent patient home Qualifiers: Respiratory failure complication: hypoxia Qualified Code(s): J96.21 - Acute and chronic respiratory failure with hypoxia (2) CHF (congestive heart failure), NYHA class III Current Visit: Yes Status: Acute Plan: Acute on chronic CHF exacerbation. -IV Lasix was switched to p.o. Lasix now -restarted on home medication at this time -cardiology consulted. Recommendation appreciated at this time -echo with no new changes Qualifiers: Congestive heart failure type: systolic Congestive heart failure chronicity : acute on chronic Qualified Code(s): I50.23 - Acute on chronic systolic ( congestive) heart failure (3) COPD exacerbation Onset Date: 01/17/17 Current Visit: No Status: Acute Plan: COPD exacerbation -units, steroids, oxygen at the time -pulmonology consulted. Appreciated recommendations this time (4) Atrial fibrillation, new onset Onset Date: 12/12/17 Current Visit: Yes Status: Acute Plan: New onset AFib at this time most likely secondary theophilline -currently on beta-isi -aspirin for anti coagulation -Will Consult with Cardiology for xarelto vs eliquis for Anticoagulation -CHADsVASC score is 3 mod High Risk (5) CAD (coronary artery disease) Onset Date: 01/17/17 Current Visit: No Status: Chronic Qualifiers: Coronary Disease-Associated Artery/Lesion type: [place] artery [place] vs. transplanted heart: [place] heart Associated angina: without angina Qualified Code(s): I25.10 - Atherosclerotic heart disease of [place] coronary artery without angina pectoris (6) Hyperlipidemia Onset Date: 12/12/17 Current Visit: Yes Status: Chronic Qualifiers: Hyperlipidemia type: mixed hyperlipidemia Qualified Code(s): E78.2 - Mixed hyperlipidemia (7) HTN (hypertension) Onset Date: 01/17/17 Current Visit: No Status: Chronic Qualifiers: Hypertension type: essential hypertension Qualified Code(s): I10 - Essential (primary) hypertension (8) GERD (gastroesophageal reflux disease) Onset Date: 12/12/17 Current Visit: Yes Status: Chronic Qualifiers: Esophagitis presence: without esophagitis Qualified Code(s): K21.9 - Gastro -esophageal reflux disease without esophagitis - Plan Pending clinical improvement after switching to p.o. Lasix. Ending tearfully level at this time to restart home dose of theophylline. Anticipate discharge in next 24-48 hr. Discharge Plan: Home Plan to discharge in: 48 Hours - Code Status/Comfort Care Code Status Assessed: Yes Critical Care: No
[2017-12-13] MEDS: ATORVASTATIN 10 MG TAB PO SCH (21:52)
[2017-12-14] MEDS: IPRATROPIUM BROM 0.5MG/2.5ML NEB SCH ×3 (02:13→13:45)
[2017-12-14 05:04] LABS: Absolute Lymphocytes (CBC) 0.6 K/uL (0.7-4.9); Absolute Monocytes 0.4 K/uL (0.1-1.3); Absolute Neutrophil 10.5 K/uL (1.8-8.0); Hematocrit 36.6 % (36.0-45.0); Lymphocytes % 4.9 % (15.3-44.8); MCH 26.4 pg (27.0-35.0); MPV 8.4 fL (7.6-11.3); Monocytes % 3.5 % (3.3-12.3); RBC Red Blood Cell Count 4.31 M/uL (3.86-4.86)
[2017-12-14 05:10] LABS: Magnesium 2.5 mg/dL (1.8-2.4); Potassium 4.1 mmol/L (3.5-5.1)
[2017-12-14] MEDS: ACETAMINOPHEN 500 MG TAB PO PRN ×2 (06:34→13:15)
[2017-12-14] MEDS: METOPROLOL XL 50 MG TAB PO SCH (06:35)
[2017-12-14] MEDS: ARFORMOTEROL TARTRATE 15 MCG/2 ML VIAL.NEB NEB SCH (07:47)
[2017-12-14] MEDS: PANTOPRAZOLE 40 MG INJ IVP SCH (08:31)
[2017-12-14] MEDS: ENOXAPARIN 80 MG/0.8 ML SQ SCH (08:31)
[2017-12-14] MEDS: METHYLPREDNISOLONE 40 MG INJ IV SCH (08:31)
[2017-12-14] MEDS: levoFLOXacin 500 MG TAB PO SCH (08:32)
[2017-12-14] MEDS: THEOPHYLLINE SR 100 MG TAB PO SCH (08:32)
[2017-12-14] MEDS ORDERED: ASPIRIN 81 MG CHEWABLE TABLET PO SCH (09:00)
[2017-12-14] MEDS ORDERED: FUROSEMIDE 40 MG TABLET PO SCH (09:00)
[2017-12-14 12:10] VITALS: O2SAT 97
--- NOTE | 2017-12-14 16:04 | P.DS ---
Admission Date: 12/11/17 Discharge Date: 12/14/17 Primary Care Provider: Dr. Bryan; Pulmonary-Dr. Pina, Cardiology-Dr. Carlson( [facility]) Disposition: ROUTINE DISCHARGE Discharge Condition: GOOD Reason for Admission: Shortness of breath Consultations: Cardiology Pulmonology - Problems (1) Acute and chronic respiratory failure Onset Date: 01/17/17 Current Visit: No Status: Acute Qualifiers: Respiratory failure complication: hypoxia Qualified Code(s): J96.21 - Acute and chronic respiratory failure with hypoxia (2) CHF (congestive heart failure), NYHA class III Current Visit: Yes Status: Acute Qualifiers: Congestive heart failure type: systolic Congestive heart failure chronicity : acute on chronic Qualified Code(s): I50.23 - Acute on chronic systolic ( congestive) heart failure (3) COPD exacerbation Onset Date: 01/17/17 Current Visit: No Status: Acute (4) Atrial fibrillation, new onset Onset Date: 12/12/17 Current Visit: Yes Status: Acute (5) CAD (coronary artery disease) Onset Date: 01/17/17 Current Visit: No Status: Chronic Qualifiers: Coronary Disease-Associated Artery/Lesion type: [place] artery [place] vs. transplanted heart: [place] heart Associated angina: without angina Qualified Code(s): I25.10 - Atherosclerotic heart disease of [place] coronary artery without angina pectoris (6) Hyperlipidemia Onset Date: 12/12/17 Current Visit: Yes Status: Chronic Qualifiers: Hyperlipidemia type: mixed hyperlipidemia Qualified Code(s): E78.2 - Mixed hyperlipidemia (7) HTN (hypertension) Onset Date: 01/17/17 Current Visit: No Status: Chronic Qualifiers: Hypertension type: essential hypertension Qualified Code(s): I10 - Essential (primary) hypertension (8) GERD (gastroesophageal reflux disease) Onset Date: 12/12/17 Current Visit: Yes Status: Chronic Qualifiers: Esophagitis presence: without esophagitis Qualified Code(s): K21.9 - Gastro -esophageal reflux disease without esophagitis Brief History of Present Illness: 77-year-old female presented to emergency room with shortness of breath. Patient with multiple medical problems including CHF, COPD, chronic steroid use, CAD with prior stent hypertension and hyperlipidemia. Over the last several days patient has been noticing increasing shortness of breath. She takes multiple medications for COPD. She is without relief. Patient denies any significant chest pain. Some palpitations noted. She reported some nausea. She also reports edema to the lower extremity. She came to the ER for evaluation. In the ER she is found to be in new onset atrial fibrillation with a rate around 130. Patient was given Lopressor. White count elevated at 22.3 with a hemoglobin of 12.5. Sodium 137, potassium 3.1, BUN of 24, creatinine 0.9 with a GFR 61. Glucose 126. Troponin unremarkable. BNP elevated at 3600. Lactate within normal range. Pro calcitonin pending. Chest x-ray showed possible bilateral opacity. Patient remained stable with treatment in the emergency room. Patient admitted for further treatment. When I saw the patient ER, she appeared stable. Daughter was at bedside. Patient reports no prior history of atrial fibrillation. Patient reports a history of CAD with prior stent. Patient takes multiple medications for COPD. She is steroid dependent. Hospital Course: Overall during the hospital stay patient remained stable The patient was initially admitted to the hospital for shortness of breath most likely multifactorial from COPD versus CHF exacerbation. Patient's exacerbation was most likely secondary to Pseudomonas pneumonia. Patient was initially started on duo nebs, steroids, oxygen on admission. And pulmonology consulted. Who recommended the patient be started brovana on a nebs as well. The patient had marked improvement in her pulmonary status postop for her CHF exacerbation patient was also found to have AFib with RVR. Patient was restarted on her medication while here in the hospital. Patient did have elevated theophylline level which could have caused her AFib with RVR and thus theophylline was held for 2 days here in the hospital. Once the theophylline level were within normal limits patient's theophylline was restarted back at a lower dose of 200 mg b.i.d.. Patient remained in sinus rhythm after that. Patient's CHF exacerbation did resolve as well with IV Lasix and was switched over to oral Lasix here in the hospital. Patient then was discharged home under stable condition was asked to continue taking all her medication as prescribed by her primary care provider with addition of Levaquin for Pseudomonas pneumonia, metoprolol was increased to 50 mg b.i.d. for her atrial fibrillation, theophylline was decreased to 200 mg b.i.d. due to having paroxysmal AFib. Patient was also given a prescription for prednisone along with the brovana. Patient had marked improvement in her symptoms while here in the hospital and thus was discharged home under stable condition Vital Signs/Physical Exam: Temp Pulse Resp BP Pulse Ox 97.7 F 64 18 151/82 H 99 12/14/17 12:00 12/14/17 12:00 12/14/17 12:00 12/14/17 12:00 12/14/17 12:00 General: Alert, In no apparent distress HEENT: Atraumatic, PERRLA, EOMI Neck: Supple, JVD not distended Respiratory: Clear to auscultation bilaterally, Normal air movement Cardiovascular: Regular rate/rhythm, Normal S1 S2 Gastrointestinal: Normal bowel sounds, No tenderness Musculoskeletal: No tenderness Integumentary: No rashes Neurological: Normal speech, Normal tone, Normal affect Lymphatics: No axilla or inguinal lymphadenopathy Laboratory Data at Discharge: WBC 11.5 K/uL (4.3-10.9) H D 12/14/17 04:04 Hgb 11.4 g/dL (12.0-15.0) L 12/14/17 04:04 Hct 36.6 % (36.0-45.0) 12/14/17 04:04 Plt Count 248 K/uL (152-406) 12/14/17 04:04 PT 13.9 SECONDS (9.5-12.5) H 12/11/17 12:05 INR 1.18 12/11/17 12:05 Sodium 140 mmol/L (136-145) 12/14/17 04:04 Potassium 4.1 mmol/L (3.5-5.1) 12/14/17 04:04 BUN 29 mg/dL (7-18) H 12/14/17 04:04 Creatinine 0.80 mg/dL (0.55-1.3) 12/14/17 04:04 Glucose 149 mg/dL (74-106) H 12/14/17 04:04 Magnesium 2.5 mg/dL (1.8-2.4) H 12/14/17 04:04 Total Bilirubin 0.4 mg/dL (0.2-1.0) 12/12/17 17:06 AST 24 U/L (15-37) 12/12/17 17:06 ALT 24 U/L (12-78) 12/12/17 17:06 Alkaline Phosphatase 84 U/L (45-117) 12/12/17 17:06 Troponin I 0.02 ng/mL (0.0-0.045) 12/12/17 03:40 Triglycerides 72 mg/dL (<150) 12/12/17 03:40 Cholesterol 110 mg/dL (<200) 12/12/17 03:40 HDL Cholesterol 59 mg/dL (40-60) 12/12/17 03:40 Cholesterol/HDL Ratio 1.86 12/12/17 03:40 Home Medications: Albuterol Sulfate [Proair Hfa] 2 puff PO QIDP PRN 11/05/16 Aspirin Chewable [Aspirin Chewable*] 1 tab PO DAILY 11/05/16 Atorvastatin Calcium [Lipitor] 10 mg PO BEDTIME 11/05/16 Furosemide 1 tab PO DAILY 11/05/16 Ipratropium [place] 1 unit IH QID PRN 11/05/16 Pantoprazole Sodium 1 tab PO DAILY 11/05/16 Tiotropium [place] [Spiriva] 1 puff PO DAILY 11/05/16 Calcium Carbonate/Vitamin D3 [Calcium 500 + Vit D Caplet] 1 each PO DAILY Guaifenesin/Dextromethorphan [Mucinex Dm ER 1,200-60 mg Tab] 0.5 tab PO BID Mometasone Furoate [Nasonex] 2 spray NS DAILY 01/17/17 Performist 1 unit IH BID 01/17/17 Promethazine HCl/Codeine [Prometh-Codein 6.25-10 mg/5 ml] 5 ml PO TIDP PRN 01/17 Spironolactone 25 mg PO DAILY PRN 12/12/17 predniSONE [Prednisone*] 10 mg PO DAILY 12/12/17 Arformoterol Tartrate [Brovana] 15 mcg NEB BIDRESP #1 vial.neb 12/14/17 Methylprednisolone [Medrol dosepack] 4 mg PO DIRECTED #1 bob 12/14/17 Metoprolol Tartrate [Lopressor*] 1 tab PO BID #60 tab 12/14/17 Theophylline [Antione-Dur*] 200 mg PO BID #60 tab 12/14/17 levoFLOXacin [Levaquin*] 500 mg PO DAILY #14 tab 12/14/17 New Medications: Arformoterol Tartrate [Brovana] 15 mcg NEB BIDRESP #1 vial.neb levoFLOXacin [Levaquin*] 500 mg PO DAILY #14 tab Methylprednisolone [Medrol dosepack] 4 mg PO DIRECTED #1 bob Metoprolol Tartrate [Lopressor*] 1 tab PO BID #60 tab Theophylline [Antione-Dur*] 200 mg PO BID #60 tab Patient Discharge Instructions: You were admitted to the hospital for Atrial fibrillation. This can be caused by 2 things. 1. Your Theophilline that you take for Pulmonary Fibrosis - Your level was high when you came to the hospital. We held the medication for couple of days and levels went back to normal. You were restarted on your medication again. 2. Pneumonia - Your sputum was + for Psuedomonous and are going to get prescription for levaquin to take for 14 days. New medication. Levaquin 500mg Daily for 14 days. Esha George. medrol Dose pack for steriods. Once finished with pack resume your prednisone 5mg daily. Change medication. Theophilline changed to 200mg BID now from 300mg BID. Metoprolol changed to 50mg BID now from 50mg daily Diet: Regular Activity: Ad emiliano Followup: Rian Pina MD [ACTIVE - CAN ADMIT] - 1-2 Weeks Ross Bryan MD [Primary Care Provider] - 1 Week
[2017-12-14 18:03] VITALS: BP 142/71; TEMP 97.5
== END 2017-12-14 16:08 | disposition home health service (06) | DRG 189 ==
LOC: ER 11:36 → ERHOLD 14:57 → 4TH 17:09
PROVIDERS: ADMIT Family Medicine; ATTEND Family Medicine
DX: J96.21 Acute and chronic respiratory failure with hypoxia (principal); I50.23 Acute on chronic systolic (congestive) heart failure; J15.1 Pneumonia due to Pseudomonas; J44.1 Chronic obstructive pulmonary disease with (acute) exacerbation; J44.0 Chronic obstructive pulmonary disease with (acute) lower respiratory infection; I25.10 Atherosclerotic heart disease of native coronary artery without angina pectoris; E78.2 Mixed hyperlipidemia; K21.9 Gastro-esophageal reflux disease without esophagitis; I11.0 Hypertensive heart disease with heart failure; Z95.5 Presence of coronary angioplasty implant and graft; Z91.040 Latex allergy status; I48.0 Paroxysmal atrial fibrillation; I25.2 Old myocardial infarction; Z87.891 Personal history of nicotine dependence; Z66 Do not resuscitate; J84.112 Idiopathic pulmonary fibrosis; T48.6X5A Adverse effect of antiasthmatics, initial encounter; Y92.019 Unspecified place in single-family (private) house as the place of occurrence of the external cause
CPT/HCPCS: 36415; 71045; 80048; 80053; 80061; 80076; 80198; 81003; 81015; 82550; 82553; 82805; 83605; 83735; 83880; 84145; 84439; 84443; 84484; 85025; 85610; 87040; 87070; 87077; 87086; 87088; 87186; 87205; 93005; 93306; 94640; 99285; C9113; J0456; J1650; J1940; J2405; J2920; J2930; J7605

== ENCOUNTER 2018-01-19 12:03 | Inpatient (IN) | payer OTHER, MEDICARE ==
[2018-01-19] MEDS ORDERED: LEVALBUTEROL 1.25 MG/3 ML NEB ONE ×2 (12:59→17:03)
[2018-01-19] MEDS ORDERED: NA CHLORIDE 0.9% 250 ML ONE (13:41)
[2018-01-19] MEDS ORDERED: METHYLPREDNISOLONE 125 MG INJ ONE (13:41)
[2018-01-19 13:50] LABS: Absolute Monocytes 0.6 K/uL (0.1-1.3); Absolute Neutrophil 14.8 K/uL (1.8-8.0); Basophils % 0.4 % (0-1.3); Eosinophils % 0.2 % (0-4.4); Hematocrit 35.4 % (36.0-45.0); Lymphocytes % 11.3 % (15.3-44.8); MCV 87.7 fL (80-100); MPV 8.2 fL (7.6-11.3); Monocytes % 3.3 % (3.3-12.3); Protime INR 1.23; RBC Red Blood Cell Count 4.04 M/uL (3.86-4.86)
[2018-01-19] MEDS ORDERED: FUROSEMIDE 100 MG/10 ML VIAL IV ONE (13:56)
--- NOTE | 2018-01-19 13:57 | RAD REPORT ---
EXAM DESCRIPTION: Sunday Single View01/19/2018 1:43 pm CLINICAL HISTORY: Shortness of breath COMPARISON: November 2017 FINDINGS: Extensive bilateral pulmonary opacities are without significant change probably represent ing pulmonary fibrosis. The heart is normal size
[2018-01-19 14:00] LABS: Arterial Blood Carboxyhemoglob 1.5 % (0-1.5); Blood O2 Saturation 91.9 % (92-98.5)
--- NOTE | 2018-01-19 14:12 | EKG ---
Test Date: 2018-01-19 Test Time: 12:48:50 Family Resource Specialist: AGUSTIN MEASUREMENT RESULTS: Intervals: Rate: 107 CT: 118 QRSD: 78 QT: 348 QTc: 464 [place]: P: 41 CT: 118 QRS: -20 T: 106 INTERPRETIVE STATEMENTS: Sinus tachycardia with premature atrial complexes Nonspecific ST and T wave abnormality Abnormal ECG Compared to ECG 12/11/2017 12:09:15 Atrial premature complex(es) now present Ventricular premature complex(es) no longer present Left-axis deviation no longer present ST (T wave) deviation still present Electronically Signed On 01-19-18 14:12:36 TIE HACKER by Yrn Rivera
[2018-01-19 14:14] LABS: Albumin 2.9 g/dL (3.4-5.0); Bilirubin Direct 0.2 mg/dL (0-0.2); Bilirubin Total 0.5 mg/dL (0.2-1.0); Potassium 3.1 mmol/L (3.5-5.1); Troponin (Emerg Dept Use Only) 0.03 ng/mL (0.0-0.045)
[2018-01-19] MEDS ORDERED: METOPROLOL TARTRATE 5 MG/5 ML INJ IV ONE ×3 (14:17→16:43)
[2018-01-19] MEDS ORDERED: MAGNESIUM SULFATE 1 gm IVPB 1 GM/100 ML BAG IV ONE (15:00)
[2018-01-19] MEDS ORDERED: CEFTRIAXONE/SWI 1gm 1 GM/10 ML SYR ONE (15:01)
--- NOTE | 2018-01-19 16:21 | EKG ---
Test Date: 2018-01-19 Test Time: 13:58:57 Priming Powder Premix Blender: MEASUREMENT RESULTS: Intervals: Rate: 170 [place]: QRSD: 70 QT: 284 QTc: 477 [place]: P: [place]: QRS: -26 T: 150 INTERPRETIVE STATEMENTS: Atrial fibrillation with rapid ventricular response with premature ventricular or aberrantly conducted complexes Low voltage QRS ST abnormality, non specific Abnormal ECG Compared to ECG 01/19/2018 12:48:50 Ventricular premature complex(es) now present Low QRS voltage now present Sinus tachycardia no longer present ST (T wave) deviation still present Electronically Signed On 01-19-18 16:20:55 SHAKER OUT by Yrn Rivera
[2018-01-19] MEDS ORDERED: METOPROLOL TAR 25 MG TAB ONE (16:22)
--- NOTE | 2018-01-19 16:42 | ER ---
Nurse's Notes [facility] Name: Becca Paraad Age: 77 yrs Sex: Female : 1940 Arrival Date: 01/19/2018 Time: 12:23 Bed 3 Private MD: Diagnosis: Unspecified atrial fibrillation;Unspecified combined systolic (congestive) and diastolic (congestive) heart failure;Pneumonia due to other specified bacteria;Acute respiratory distress syndrome Presentation: 01/19 12:23 Presenting complaint: Patient states: diarrhea and increased SOB x 2 days. Denies ss fever. Onset of symptoms. Risk Assessment: Do you want to hurt yourself or someone else? Patient reports no desire to harm self or others. Initial Sepsis Screen: Does the patient meet any 2 criteria? RR > 20 per min. Does the patient have a suspected source of infection? No. Patient's initial sepsis screen is negative. Care prior to arrival: Medication(s) given: Albuterol Neb x 1, Atrovent Neb x 1, IV initiated. 20 GA, in the right wrist, Oxygen administered. via a nebulizer mask. 12:23 Method Of Arrival: EMS: [facility] 12:23 Acuity: BEATRIZ 2 ss Historical: - Allergies: 12:25 Latex, Natural Rubber; ss - Home Meds: 14:15 aspirin 81 mg Oral tab once daily [Active]; furosemide 80 mg Oral tab 1 tab once daily hb [Active]; Home O2 [Active]; ipratropium bromide 0.02 % inhalation soln 2.5 mL 4 times per day [Active]; Lipitor 40 mg oral tab [Active]; metoprolol tartrate 50 mg Oral tab 1 tab once daily [Active]; Mucinex DM 30-600 mg Oral Tb12 1 tab every 12 hours [Active]; Nasonex 50 mcg/actuation Nasal spry 2 sprays once daily [Active]; pantoprazole 40 mg Oral TbEC 1 tab once daily [Active]; Perforomist 20 mcg/2 mL inhalation nebu 2 mL 2 times per day [Active]; prednisone 10 mg Oral tab 1 tab once daily [Active]; ProAir HFA inhalation 2 puffs every 6 hours [Active]; Spiriva with HandiHaler 18 mcg inhalation CpDv 1 cap once daily [Active]; spironolactone 25 mg Oral tab 2 tabs 2 times per day [Active]; theophylline 200 mg oral Tb12 [Active]; Incruse Ellipta 62.5 mcg/actuation inhalation dsdv 1 puff once daily [Active]; - PMHx: 12:25 Arthritis; CAD; COPD; Hypertension; Myocardial infarction; Pneumonia; pulmonary ss fibrosis; - Immunization history:: Adult Immunizations up to date. - Social history:: Smoking status: Patient/guardian denies using tobacco. - Ebola Screening: : Patient denies exposure to infectious person Patient denies travel to an Ebola-affected area in the 21 days before illness onset. Screenin:22 Abuse screen: Denies threats or abuse. Denies injuries from another. Nutritional hb screening: No deficits noted. Tuberculosis screening: No symptoms or risk factors identified. Fall Risk Total Muñoz Fall Scale indicates High Risk Score (45 or more points). Fall prevention measures have been instituted. Side Rails Up X 2 Frequent Obs/Assessments Occuring Family Present and informed to notify staff if the need to leave the bedside. Assessment: 12:50 General: Appears in no apparent distress. uncomfortable, Behavior is calm, cooperative, aj1 appropriate for age. Pain: Complains of pain in abdomen. Neuro: Level of Consciousness is awake, alert, obeys commands. Cardiovascular: Reports shortness of breath, Heart tones S1 S2 present Patient's skin is warm and dry. Edema is 3+ to left ankle, left foot, left toes, right ankle, right foot and right toes Rhythm is irregular. Respiratory: Reports shortness of breath cough that is productive, hacking, persistent Patient states that her shortness of breath is worse when she lays down, and that she is unable to tolerate any kind of activity without becoming severely short of breath Airway is patent Respiratory effort is even, unlabored, Respiratory pattern is regular, symmetrical, Breath sounds with crackles bilaterally. Breath sounds with rhonchi bilaterally. the patient has moderate shortness of breath. GI: Abdomen is non-distended, Bowel sounds present X 4 quads. Abd is soft X 4 quads Reports lower abdominal pain, diarrhea, nausea, Patient currently denies vomiting. : No signs and/or symptoms were reported regarding the genitourinary system. EENT: No signs and/or symptoms were reported regarding the EENT system. Derm: No signs and/or symptoms reported regarding the dermatologic system. Skin is pink, warm \T\ dry. normal. Musculoskeletal: No signs and/or symptoms reported regarding the musculoskeletal system. Circulation, motion, and sensation intact. 13:30 Reassessment: HR up to 157 bpm. Patient reports feeling increasing shortness of breath. aj1 Notified DREW Monet. 13:45 Reassessment: Patient heart rate up to 203. Notified DREW Monet. Respiratory paged to aj1 place pt on Bi-PAP. 13:50 Reassessment: Respiratory at bedside placing patient on Bi-PAP, DREW Monet at bedside. aj1 14:03 Reassessment: Patient's O2 saturation has improved on Bi-PAP but heart rate has aj1 remained unchanged, patient appears anxious, restless. Notified DREW Monet. Patient transported to bed 3. 14:06 Reassessment: Dr. Parkinson at bedside. hb 15:00 Reassessment: Patient appears in no apparent distress at this time. No changes from previously documented assessment. Patient and/or family updated on plan of care and expected duration. Pain level reassessed. BiPAP continues. HR 110-130, PA Flako aware. Family remains at bedside. . 16:00 Reassessment: Patient appears in no apparent distress at this time. Patient and/or hb family updated on plan of care and expected duration. Pain level reassessed. BiPAP continues. HR 105-120, PA Flako aware. Family remains at bedside. 19:15 Neuro: Level of Consciousness is awake, alert, obeys commands, Oriented to person, lp1 place, situation. Cardiovascular: Capillary refill < 3 seconds in bilateral fingers toes Rhythm is atrial fibrillation. Respiratory: Respiratory effort is labored, Respiratory pattern is symmetrical, Breath sounds are coarse in right upper lobe and right lower lobe Breath sounds with crackles in left upper lobe and left lower lobe. Derm: Skin is fragile, is thin, Skin is dry, Skin is normal. Vital Signs: 12:25 BP 114 / 53; Pulse 113; Resp 34; Temp 98.1(O); Pulse Ox 92% on 3 lpm NC; Weight 51.26 ss kg; Height 5 ft. 2 in. (157.48 cm); Pain 0/10; 13:00 BP 112 / 72; Pulse 128; Resp 26; Pulse Ox 94% on 3 lpm NC; aj1 13:30 BP 104 / 74; Pulse 147; Resp 32; Pulse Ox 90% on 4 lpm NC; aj1 13:45 BP 114 / 86; Pulse 178; Resp 42; Pulse Ox 90% on 4 lpm NC; aj1 14:00 BP 145 / 98; Pulse 182; Resp 30; Pulse Ox 100% on BiPAP; aj1 14:15 BP 114 / 79; Pulse 128; Resp 36; Pulse Ox 91% on 30% BiPAP; hb 15:00 BP 123 / 79; Pulse 121; Resp 29; Pulse Ox 92% on 30% BiPAP; hb 15:45 BP 126 / 76; Pulse 120; Resp 25; Pulse Ox 93% on 30% BiPAP; hb 16:15 BP 123 / 78; Pulse 123; Resp 24; Pulse Ox 92% on 30% BiPAP; hb 17:30 BP 119 / 70; Pulse 103; Resp 28; Pulse Ox 91% ; sv 18:15 BP 117 / 68; Pulse 98; Resp 24; Pulse Ox 92% ; sv 19:45 BP 105 / 80; Pulse 107; Resp 24; Pulse Ox 70% on BiPAP; lp1 20:00 BP 110 / 82; Pulse 112; Resp 26; Pulse Ox 95% on BiPAP; lp1 12:25 Body Mass Index 20.67 (51.26 kg, 157.48 cm) ss 14:15 BiPAP 14/7, R 14, 30% FiO2 hb 19:45 Nebulizer at this time lp1 ED Course: 12:23 Patient arrived in ED. ss 12:24 Triage completed. ss 12:25 Arm band placed on right wrist. ss 12:37 Flako Pacheco PA is PHCP. cp 12:37 Teo Parkinson MD is Attending Physician. cp 12:49 Genie Chen, KATHARINE is Primary Nurse. aj1 12:50 Patient has correct armband on for positive identification. aj1 12:50 Maintain EMS IV. Dressing intact. Good blood return noted. Site clean \T\ dry. Gauge \T\ aj 1 site: rt wrist. 13:04 EKG done, by missile and missile checkout technician. reviewed by Flako RUSSELL. at1 13:30 Inserted saline lock: 18 gauge in left antecubital area, using aseptic technique. Blood aj1 collected. 13:30 Initial lab(s) drawn, by ne, sent to lab. First set of blood cultures drawn. aj1 14:02 Report given to Suze Hudson RN. aj1 14:18 EKG done, by missile and missile checkout technician. reviewed by Flako RUSSELL Repeat EKG. at1 14:19 Rhythm strip was performed and given to Flako RUSSELL. at1 14:21 Mendoza cath inserted, using sterile technique, 16 Fr., by ne, balloon inflated, to sv gravity drainage, returned clear yellow urine. Patient tolerated poorly. 14:23 Basic Metabolic Panel Sent. sv 14:23 CBC with Diff Sent. sv 14:23 LFT's Sent. sv 14:23 Magnesium Sent. sv 14:23 NT PRO-BNP Sent. sv 14:23 PT-INR Sent. sv 14:23 Troponin (emerg Dept Use Only) Sent. sv 14:29 Radiology exam delayed due to pt on bypap and unable to come to ct at this time, nurse sj to call when ready. 16:34 Radiology exam delayed due to PT ON BIPAP AT THIS TIME, NURSE TO CALL WHEN PT IS READY vm2 TO COME TO CT. 16:40 Thien Mendoza MD is Hospitalizing Provider. 17:43 Radiology exam delayed due to not stable enough to come down to CT at this time per vm2 Rae ALCANTAR. 18:10 Repeat lab(s) drawn. sent to lab. [facility] 18:43 Radiology exam delayed due to PT STILL ON BIPAP UNABLE TO BE TAKEN OFF DUE TO STATS vm2 BEING LOW. 19:25 No provider procedures requiring assistance completed. Patient admitted, IV remains in lp1 place. Administered Medications: Discontinued: NS 0.9% 250 ml IV at bolus once 13:38 Drug: SOLU-Medrol 125 mg Route: IVP; Site: left antecubital; dm5 14:25 Follow up: Response: No adverse reaction hb 13:40 Drug: NS 0.9% 250 ml Route: IV; Rate: bolus; Site: left antecubital; dm5 13:40 CANCELLED (Duplicate Order): NS 0.9% 250 ml IV at 1 bolus once dm5 13:45 Drug: Xopenex (3) 1.25 mg Route: Inhalation; hb 13:45 Drug: Lasix 60 mg Route: IVP; Site: left antecubital; aj1 14:12 Drug: Lopressor 5 mg Route: IVP; Site: left antecubital; sv 14:14 CANCELLED (Physician Discretion): Rocephin 1 grams IV at calculated rate once; Given cp slow IV push per pharmacy instructions 15:01 Drug: Rocephin 1 grams Route: IV; Rate: bolus; Site: left antecubital; hb 15:30 Follow up: Response: No adverse reaction; IV Status: Completed infusion hb 15:01 Drug: Magnesium Sulfate 1 grams Route: IVPB; Infused Over: 1 hrs; Site: right hb antecubital; 16:05 Follow up: Response: No adverse reaction; IV Status: Completed infusion hb 15:01 Drug: Lopressor 2.5 mg Route: IVP; Site: left antecubital; hb 15:32 Drug: Lopressor 2.5 mg Route: IVP; Site: left antecubital; hb 16:19 Drug: Lopressor 2.5 mg Route: IVP; Site: left antecubital; hb 16:40 Follow up: Response: No adverse reaction hb 16:21 Drug: Metoprolol 25 mg Route: PO; hb 16:40 Drug: Lopressor 2.5 mg {Note: BP 132/83, HR 124.} Route: IVP; Site: left antecubital; hb 17:30 Follow up: Response: No adverse reaction hb 17:25 Drug: LevaQUIN 750 mg Volume: 150 ml; Route: IVPB; Infused Over: 90 mins; Site: left hb antecubital; 19:48 Follow up: IV Status: Infusion continued upon admission lp1 Output: 19:47 Urine: 850ml (Mendoza); Total: 850ml. lp1 Outcome: 16:41 Decision to Hospitalize by Provider. cp 19:47 critical lp1 19:47 Instructed on the need for admit. 20:00 Admitted to ICU accompanied by nurse, accompanied by tech, via stretcher, room 2, with lp1 oxygen, on monitor, with chart, Report called to KATHARINE Alvares 20:00 Patient left the ED. lp1 Signatures: Genie Chen RN RN Zenaida Mukherjee RN RN [email or web address] Rochelle Mukherjee RN RN sv Jones, Susan sj Smirch, Shelby, RN RN ss Pena, Laura, RN RN lp1 Juanita Segura, rfid specialist EKG Tat1 Flako Pacheco PA Rae Mckenna cp RN RN Nasima Reynolds 5 Munira Pringle 2 Corrections: (The following items were deleted from the chart) 14:27 13:45 Reassessment: Patient heart rate up to 203. Respiratory at bedside, placing aj1 patient on Bi-PAP. aj1 14:28 14:03 Reassessment: Patient's O2 saturation has improved on Bi-PAP but heart rate has aj1 remained unchanged. Notified DREW Monet. Patient transported to bed 3. aj1 14:36 14:00 BP 145 / 98; Pulse 182bpm; Resp 20bpm; Pulse Ox 100% BiPAP; aj1 aj1 16:30 16:00 Reassessment: Patient appears in no apparent distress at this time. Patient hb and/or family updated on plan of care and expected duration. Pain level reassessed. BiPAP continues. HR 105-120, DREW Mcknighty aware. Family remains at bedside. Admission orders, awaiting room assignment at this time hb 20:23 20:22 Patient left the ED. lp1 lp1
--- NOTE | 2018-01-19 16:42 | EDPHYS ---
Physician Documentation [facility] Name: Becca Parada Age: 77 yrs Sex: Female : 1940 Arrival Date: 01/19/2018 Time: 12:23 Bed 3 Private MD: ED Physician Teo Parkinson HPI: 01/19 12:45 This 77 yrs old Female presents to ER via EMS with complaints of Diarrhea, cp Pedal Edema, Shortness Of Breath, COPD Exacerbation. 12:45 The patient presents to the emergency department with diarrhea, that is intermittent. cp Onset: The symptoms/episode began/occurred yesterday. Historical: - Allergies: 12:25 Latex, Natural Rubber; ss - Home Meds: 14:15 aspirin 81 mg Oral tab once daily [Active]; furosemide 80 mg Oral tab 1 tab once daily hb [Active]; Home O2 [Active]; ipratropium bromide 0.02 % inhalation soln 2.5 mL 4 times per day [Active]; Lipitor 40 mg oral tab [Active]; metoprolol tartrate 50 mg Oral tab 1 tab once daily [Active]; Mucinex DM 30-600 mg Oral Tb12 1 tab every 12 hours [Active]; Nasonex 50 mcg/actuation Nasal spry 2 sprays once daily [Active]; pantoprazole 40 mg Oral TbEC 1 tab once daily [Active]; Perforomist 20 mcg/2 mL inhalation nebu 2 mL 2 times per day [Active]; prednisone 10 mg Oral tab 1 tab once daily [Active]; ProAir HFA inhalation 2 puffs every 6 hours [Active]; Spiriva with HandiHaler 18 mcg inhalation CpDv 1 cap once daily [Active]; spironolactone 25 mg Oral tab 2 tabs 2 times per day [Active]; theophylline 200 mg oral Tb12 [Active]; Incruse Ellipta 62.5 mcg/actuation inhalation dsdv 1 puff once daily [Active]; - PMHx: 12:25 Arthritis; CAD; COPD; Hypertension; Myocardial infarction; Pneumonia; pulmonary ss fibrosis; - Immunization history:: Adult Immunizations up to date. - Social history:: Smoking status: Patient/guardian denies using tobacco. - Ebola Screening: : Patient denies exposure to infectious person Patient denies travel to an Ebola-affected area in the 21 days before illness onset. ROS: 12:50 Constitutional: Negative for chills, fever, poor PO intake. cp 12:50 Eyes: Negative for injury, pain, redness, and discharge. cp 12:50 Cardiovascular: Positive for edema, palpitations, Negative for chest pain. cp 12:50 Eyes: Negative for discharge, redness, visual disturbance. cp 12:50 ENT: Negative for drainage from ear(s), ear pain, sore throat, difficulty swallowing, difficulty handling secretions. 12:50 Neck: Negative for pain with movement, pain at rest, stiffness, tenderness. 12:50 Respiratory: Positive for cough, "sounds productive", shortness of breath, Negative for hemoptysis. 12:50 Abdomen/GI: Positive for abdominal pain, diarrhea, Negative for vomiting, constipation, black/tarry stool, rectal bleeding. 12:50 Back: Negative for pain at rest, pain with movement. 12:50 : Negative for urinary symptoms, vaginal bleeding. 12:50 MS/extremity: Negative for injury or acute deformity. 12:50 Skin: Negative for cellulitis, rash. 12:50 Neuro: Negative for altered mental status, syncope. 12:50 All other systems are negative. Exam: 12:55 ECG was reviewed by the Attending Physician. cp 12:58 Constitutional: The patient appears alert, awake, non-diaphoretic, well developed, cp frail. 12:58 Head/Face: Normocephalic, atraumatic. Eyes: Pupils equal round and reactive to light, cp extra-ocular motions intact. Lids and lashes normal. Conjunctiva and sclera are non-icteric and not injected. Cornea within normal limits. Periorbital areas with no swelling, redness, or edema. 12:58 ENT: External ear(s): are unremarkable, Ear canal(s): are normal, clear, TM's: bulging, is not appreciated, bilaterally, dullness, bilaterally, erythema, is not appreciated, bilaterally, Nose: is normal, Mouth: Lips: dry, Oral mucosa: pink and intact, moist, Posterior pharynx: Airway: no evidence of obstruction, patent, Tonsils: are normal in appearance, Uvula: midline, swelling, is not appreciated, erythema, is not appreciated. 12:58 Neck: External neck: is normal, ROM/movement: is normal, is supple, without pain, no range of motions limitations, no meningismus, no nuchal rigidity. 12:58 Chest/axilla: Inspection: normal, Palpation: is normal, no crepitus, no tenderness. 12:58 Cardiovascular: Rate: tachycardic, Rhythm: regular, Pulses: Pulses are 2+ in right radial artery and left radial artery. Edema: ankle edema, that is moderate, JVD: is not appreciated. 13:00 Respiratory: moderate respiratory distress is noted, Respirations: labored breathing, cp that is moderate, shallow respirations, that is moderate, tachypnea, that is moderate, Breath sounds: rales, that are moderate, are heard diffusely. 13:00 Abdomen/GI: Inspection: abdomen appears normal, Bowel sounds: active, all quadrants, cp Palpation: soft, in all quadrants, mild abdominal tenderness, in all quadrants, rebound tenderness, is not appreciated, involuntary guarding, is not appreciated. 13:00 Back: pain, is absent, ROM is normal, CVA tenderness, is absent. 13:00 Musculoskeletal/extremity: Exam is negative for decreased range of motion, deformity, injury. 13:00 Skin: cellulitis, is not appreciated, no rash present. 13:00 Neuro: Orientation: to person, place \\T\\ time. Mentation: is normal, Cerebellar function: is grossly normal, Motor: moves all fours, negative for focal deficits, Sensation: no obvious gross deficits. 14:05 ECG was reviewed by the Attending Physician. cp Vital Signs: 12:25 BP 114 / 53; Pulse 113; Resp 34; Temp 98.1(O); Pulse Ox 92% on 3 lpm NC; Weight 51.26 ss kg; Height 5 ft. 2 in. (157.48 cm); Pain 0/10; 13:00 BP 112 / 72; Pulse 128; Resp 26; Pulse Ox 94% on 3 lpm NC; aj1 13:30 BP 104 / 74; Pulse 147; Resp 32; Pulse Ox 90% on 4 lpm NC; aj1 13:45 BP 114 / 86; Pulse 178; Resp 42; Pulse Ox 90% on 4 lpm NC; aj1 14:00 BP 145 / 98; Pulse 182; Resp 30; Pulse Ox 100% on BiPAP; aj1 14:15 BP 114 / 79; Pulse 128; Resp 36; Pulse Ox 91% on 30% BiPAP; hb 15:00 BP 123 / 79; Pulse 121; Resp 29; Pulse Ox 92% on 30% BiPAP; hb 15:45 BP 126 / 76; Pulse 120; Resp 25; Pulse Ox 93% on 30% BiPAP; hb 16:15 BP 123 / 78; Pulse 123; Resp 24; Pulse Ox 92% on 30% BiPAP; hb 17:30 BP 119 / 70; Pulse 103; Resp 28; Pulse Ox 91% ; sv 18:15 BP 117 / 68; Pulse 98; Resp 24; Pulse Ox 92% ; sv 19:45 BP 105 / 80; Pulse 107; Resp 24; Pulse Ox 70% on BiPAP; lp1 20:00 BP 110 / 82; Pulse 112; Resp 26; Pulse Ox 95% on BiPAP; lp1 12:25 Body Mass Index 20.67 (51.26 kg, 157.48 cm) ss 14:15 BiPAP 14/7, R 14, 30% FiO2 hb 19:45 Nebulizer at this time lp1 MDM: 12:39 Patient medically screened. cp 16:25 Data reviewed: vital signs, nurses notes, lab test result(s), EKG, radiologic studies, cp plain films. 16:25 Test interpretation: by ED physician or midlevel provider: ECG, plain radiologic cp studies. Counseling: I had a detailed discussion with the patient and/or guardian regarding: the historical points, exam findings, and any diagnostic results supporting the discharge/admit diagnosis, lab results, radiology results, the need for further work-up and treatment in the hospital. Response to treatment: the patient's symptoms have markedly improved after treatment. Physician consultation: Thien Mendoza MD was called at 16:25, was contacted at 16:25, regarding admission, to the ICU, patient's condition. 01/19 12:38 Order name: Basic Metabolic Panel cp 01/19 12:38 Order name: CBC with Diff cp 01/19 12:38 Order name: LFT's cp 01/19 12:38 Order name: Magnesium cp 01/19 12:38 Order name: NT PRO-BNP cp 01/19 12:38 Order name: PT-INR cp 01/19 12:38 Order name: Troponin (emerg Dept Use Only) cp 01/19 12:41 Order name: Blood Culture Adult (2) cp 01/19 12:41 Order name: Procalcitonin cp 01/19 12:41 Order name: Lactate cp 01/19 12:41 Order name: Lipase cp 01/19 13:42 Order name: ABG 01/19 13:50 Order name: CBC with Automated Diff; Complete Time: 14:10 EDMS 01/19 15:12 Interpretation: Normal except: WBC 17.5; HGB 11.3; HCT 35.4; MCHC 31.9; RDW 15.5; JAMARI% cp 84.8; LYM% 11.3; NEUT A 14.8. 01/19 12:38 Order name: XRAY Chest (1 view) 01/19 13:42 Order name: BIPAP cp 01/19 13:54 Order name: Protime (+INR); Complete Time: 14:10 EDMS 01/19 13:58 Order name: RAD; Complete Time: 14:10 EDMS 01/19 13:59 Order name: Lipase; Complete Time: 14:10 EDMS 01/19 14:09 Order name: Lactate; Complete Time: 14:10 EDMS 01/19 14:18 Order name: Procalcitonin; Complete Time: 14:18 EDMS 01/19 14:19 Order name: Basic Metabolic Panel; Complete Time: 14:20 EDMS 01/19 14:20 Interpretation: Normal except: K 3.1; CL 97; CO2 36; GLUC 118; GFR 69. 01/19 14:19 Order name: Liver (Hepatic) Function; Complete Time: 14:20 EDMS 01/19 14:19 Order name: Troponin (Emerg Dept Use Only); Complete Time: 14:20 EDMS 01/19 14:19 Order name: NT PRO-BNP; Complete Time: 14:20 EDMS 01/19 14:20 Interpretation: Abnormal: NT PRO-BNP 5867. 01/19 14:19 Order name: Magnesium; Complete Time: 14:20 EDMS 01/19 14:20 Order name: CT Chest, Abdomen, Pelvis - W/Contrast 01/19 14:34 Order name: ABG Arterial Blood Gas; Complete Time: 15:11 EDMS 01/19 18:30 Order name: Lactate Sepsis 2 HR Follow-up EDGA 01/19 12:38 Order name: EKG; Complete Time: 12:39 01/19 12:38 Order name: Cardiac monitoring; Complete Time: 12:50 01/19 12:38 Order name: EKG - Nurse/Tech; Complete Time: 12:50 cp 01/19 12:38 Order name: IV Saline Lock; Complete Time: 14:22 cp 01/19 12:38 Order name: Labs collected and sent; Complete Time: 14:22 cp 01/19 12:38 Order name: O2 Per Protocol; Complete Time: 12:50 cp 01/19 12:38 Order name: O2 Sat Monitoring; Complete Time: 12:50 cp EC:55 Rate is 107 beats/min. Rhythm is regular. DE interval is normal. QRS interval is cp normal. QT interval is normal. T waves are Inverted in lead V5. Interpreted by me. Reviewed by me. 14:05 Rate is 170 beats/min. Rhythm is irregular. QRS interval is normal. QT interval is cp normal. Interpreted by me. Reviewed by me. Administered Medications: Discontinued: NS 0.9% 250 ml IV at bolus once 13:38 Drug: SOLU-Medrol 125 mg Route: IVP; Site: left antecubital; dm5 14:25 Follow up: Response: No adverse reaction hb 13:40 Drug: NS 0.9% 250 ml Route: IV; Rate: bolus; Site: left antecubital; dm5 13:40 CANCELLED (Duplicate Order): NS 0.9% 250 ml IV at 1 bolus once dm5 13:45 Drug: Xopenex (3) 1.25 mg Route: Inhalation; hb 13:45 Drug: Lasix 60 mg Route: IVP; Site: left antecubital; aj1 14:12 Drug: Lopressor 5 mg Route: IVP; Site: left antecubital; sv 14:14 CANCELLED (Physician Discretion): Rocephin 1 grams IV at calculated rate once; Given cp slow IV push per pharmacy instructions 15:01 Drug: Rocephin 1 grams Route: IV; Rate: bolus; Site: left antecubital; hb 15:30 Follow up: Response: No adverse reaction; IV Status: Completed infusion hb 15:01 Drug: Magnesium Sulfate 1 grams Route: IVPB; Infused Over: 1 hrs; Site: right hb antecubital; 16:05 Follow up: Response: No adverse reaction; IV Status: Completed infusion hb 15:01 Drug: Lopressor 2.5 mg Route: IVP; Site: left antecubital; hb 15:32 Drug: Lopressor 2.5 mg Route: IVP; Site: left antecubital; hb 16:19 Drug: Lopressor 2.5 mg Route: IVP; Site: left antecubital; hb 16:40 Follow up: Response: No adverse reaction hb 16:21 Drug: Metoprolol 25 mg Route: PO; hb 16:40 Drug: Lopressor 2.5 mg {Note: BP 132/83, HR 124.} Route: IVP; Site: left antecubital; hb 17:30 Follow up: Response: No adverse reaction hb 17:25 Drug: LevaQUIN 750 mg Volume: 150 ml; Route: IVPB; Infused Over: 90 mins; Site: left hb antecubital; 19:48 Follow up: IV Status: Infusion continued upon admission lp1 Disposition: 01/19/18 16:41 Hospitalization ordered by Thien Mendoza for Inpatient Admission. Preliminary diagnosis are Unspecified atrial fibrillation, Unspecified combined systolic (congestive) and diastolic (congestive) heart failure, Pneumonia due to other specified bacteria, Acute respiratory distress syndrome. - Bed requested for Intensive Care Unit. - Status is Inpatient Admission. lp1 - Condition is Stable. - Problem is new. - Symptoms have improved. UTI on Admission? No Addendum: 01/21/2018 09:18 Co-signature as Attending Physician, Teo Parkinson MD I agree with the assessment and k dr plan of care. Signatures: Dispatcher [employer] EDMS Genie Chen RN RN aj1 Elisabeth Herrera RN RN kl Markwardt, Deana, RN RN dm5 Rochelle Mukherjee RN RN sv Rittger, Kevin, MD MD [facility] Jaent Caicedo RN RN ss Pena, Laura, RN RN lp1 Flako Pacheco PA PA cp Rae Hudson, KATHARINE RN hb Corrections: (The following items were deleted from the chart) 01/19 13:40 13:39 NS 0.9% 250 ml IV at 1 bolus once ordered. dm5 dm5 14:14 14:13 Rocephin 1 grams IV at calculated rate once; Given slow IV push per pharmacy cp instructions ordered. cp 17:39 16:41 Hospitalization Ordered by Thien Mendoza MD for Inpatient Admission. Preliminary cp diagnosis is Unspecified atrial fibrillation; Unspecified combined systolic (congestive) and diastolic (congestive) heart failure; Pneumonia due to other specified bacteria. Bed requested for Intensive Care Unit. Status is Inpatient Admission. Condition is Stable. Problem is new. Symptoms have improved. UTI on Admission? No. cp 19:24 17:39 01/19/2018 16:41 Hospitalization Ordered by Thien Mendoza MD for Inpatient kl Admission. Preliminary diagnosis is Unspecified atrial fibrillation; Unspecified combined systolic (congestive) and diastolic (congestive) heart failure; Pneumonia due to other specified bacteria; Acute respiratory distress syndrome. Bed requested for Intensive Care Unit. Status is Inpatient Admission. Condition is Stable. Problem is new. Symptoms have improved. UTI on Admission? No. cp 20:22 19:24 01/19/2018 16:41 Hospitalization Ordered by Thien Mendoza MD for Inpatient lp1 Admission. Preliminary diagnosis is Unspecified atrial fibrillation; Unspecified combined systolic (congestive) and diastolic (congestive) heart failure; Pneumonia due to other specified bacteria; Acute respiratory distress syndrome. Bed requested for Intensive Care Unit. Status is Inpatient Admission. Condition is Stable. Problem is new. Symptoms have improved. UTI on Admission? No. kl
[2018-01-19] MEDS ORDERED: METOPROLOL TARTRATE 5 MG/5 ML INJ IV PRN (16:57)
[2018-01-19] MEDS ORDERED: Levofloxacin 750mg IV 750 MG/150 ML BAG IV ONE (17:24)
[2018-01-19] MEDS: FUROSEMIDE 100 MG/10 ML VIAL IV SCH (18:00)
[2018-01-19] MEDS: LEVALBUTEROL 0.63 MG/3 ML NEB NEB SCH (19:35)
[2018-01-19] MEDS: IPRATROPIUM BROM 0.5MG/2.5ML NEB SCH (19:35)
[2018-01-19] MEDS ORDERED: LEVALBUTEROL 0.63 MG/3 ML NEB ONE (19:44)
[2018-01-19] MEDS ORDERED: IPRATROPIUM BROM 0.5MG/2.5ML ONE (19:45)
[2018-01-19] MEDS ORDERED: ALBUTEROL 2.5 MG/3 ML NEB SOL NEB SCH (20:00)
[2018-01-19] MEDS ORDERED: POTASSIUM 25 MEQ EFFERV TAB PO ONE (20:27)
[2018-01-19] MEDS: VANCOMYCIN 1 GM/250 ML BAG ONE ×2 (20:39→20:48)
[2018-01-19] MEDS: VANCOMYCIN 500 MG/VIAL ONE ×2 (20:46→20:48)
[2018-01-19] MEDS: METHYLPREDNISOLONE 40 MG INJ IV SCH (20:48)
[2018-01-19] MEDS: VANCOMYCIN 1.25 GM in NA CHLORIDE 0.9% 250 ML IVPB SCH ×2 (20:49→22:21)
[2018-01-19] MEDS: ACETAMINOPHEN 500 MG TAB PO PRN (20:56)
[2018-01-19] MEDS ORDERED: Levofloxacin 750mg IV 750 MG/150 ML BAG IV SCH (21:00)
[2018-01-19] MEDS: ONDANSETRON 4 MG/2 ML VIAL IV PRN (21:11)
[2018-01-20] MEDS: IPRATROPIUM BROM 0.5MG/2.5ML NEB SCH ×6 (00:04→19:58)
[2018-01-20] MEDS: LEVALBUTEROL 0.63 MG/3 ML NEB NEB SCH ×4 (00:04→19:58)
[2018-01-20] MEDS: METHYLPREDNISOLONE 40 MG INJ IV SCH ×2 (00:21→06:23)
--- NOTE | 2018-01-20 05:02 | HP ---
Date of Admission: 01/19/2018 Code Status: Full. No designated medical power of business attorney. Chief Complaint: Shortness of breath. Primary Care Physician: Dr. Bryan. Consultants: Dr. Pina with Pulmonology. History Of Present Illness: The patient is a 77-year-old female with past medical history of CHF, CO PD, who was recently admitted to the hospital for pneumonia secondary to Pseudomonas and discharged o n 12/14/2017, who was in her usual state of health until few days prior to admission when the patient had sudden onset of diarrhea. The patient did have some epigastric tenderness; however, her symptom s improved. However, her shortness of breath became worse. The patient has been compliant with her oxygen and nebulizer treatments, has not been compliant with her fluid-restricted diet. The patient' s symptoms were constant, moderate, and progressively worsening. Therefore, the patient was brought into the ER for further evaluation. Upon arrival, her workup showed white count of 17,000. Potassiu m was 3.1. Procalcitonin was negative; however, lactate was elevated. The patient was also found to be in atrial fibrillation with RVR, rate in the 140s to 170s. The patient was given multiple doses of Lopressor with some mild improvement in her symptoms and heart rate. The patient was started on B iPAP due to her respiratory distress and was given Lasix, which improved her condition. The patient was then referred for admission. When seen in the ER, the patient was awake, alert, and oriented x3, in some moderate respiratory distress. Past Medical History: Coronary artery disease with [facility] with stent x2 in December 2015, hypertension, COPD with steroid dependence, hyperlipidemia, arthritis, cataracts, GERD, CHF, appendectomy, cholecys tectomy, hysterectomy. Past Surgical History: Cataract surgery. Allergies: TO LATEX. Medications: List reviewed. Social History: The patient lives with her son. She is , has 3 children. Uses a walker for ambulation. Denies any tobacco use or alcohol use. Was a long-term smoker previously. Family History: Father has hypertension, liver disease, kidney disease, and cirrhosis. Mother had M I, heart disease, and lung disease. Review of Systems: An 11-point system reviewed, negative except as per HPI. Physical Examination: Vital Signs: Blood pressure 114/53, pulse 113, respirations 34, temperature 98.1, and O2 92% on 3 L via nasal cannula. General: Awake, alert, and oriented x3, elderly female, ill appearing, in moderate respiratory distr ess. HEENT: Normocephalic, atraumatic. PERRLA. EOMI. Moist mucous membranes. Oropharynx is clear. Po or dentition. Conjunctivae anicteric. Neck: Supple. Trachea midline. CV: S1, S2. Irregularly irregular. Rapid ventricular rate. Pulses are weak bilaterally. Respiratory: Diminished breath sounds. Some crackles heard. The patient is tachypneic. Use of acc essory muscles is present. Gastrointestinal: Abdomen is soft, nontender, and nondistended. Positive bowel sounds. No guarding or rigidity. Extremities: No clubbing, cyanosis. The patient has 3+ edema in bilateral lower extremities. No ca lf tenderness. Skin: The patient has erythema of the left lower extremity with warmth to touch and mild tenderness to palpation. Has some areas of excoriation and dry ulceration on bilateral lower extremities. Neuro: Cranial nerves 2 through 12 intact grossly. No focal neurological deficit. Speech is normal . Strength is symmetric in bilateral upper and lower extremities. Psych: Mood is anxious. Affect is congruent with mood. Insight and judgment are fair. Laboratory Data: Sodium 142, potassium 3.1, chloride 97, CO2 of 36, BUN 10, creatinine 0.8, glucose 118, lactate 2.6, calcium 8.7, and magnesium 2. BNP 5867. Albumin 2.9. lipase 123. Procalcitonin less than 0.05. ABG; pH 7.51, pCO2 41, PO2 60, and bicarb 33. INR is 1.23. WBC 17.5, H and H 11.3 and 35.4, platelets 372, and neutrophils 84%. Chest x-ray, personally reviewed, shows extensive bila teral pulmonary opacities without significant change, probably representing pulmonary fibrosis, heart normal size. EKG shows sinus tachycardia with premature atrial complexes, rate of 107. Repeat EKG shows atrial fibrillation with RVR, rate of 170. Assessment And Plan: A 77-year-old female with: 1.Acute on chronic respiratory failure. The patient is requiring BiPAP. The patient is with hypoxe abi. We will continue supplemental oxygenation, likely secondary to COPD, CHF, and possible pneumoni a. 2.Acute COPD exacerbation. We will continue with Xopenex and ipratropium nebulizer treatments. David id albuterol due to A-Fib. Continue with Solu-Medrol. 3.Atrial fibrillation with RVR. Continue with IV Lopressor. The patient has been taken off anticoa gulation previously, last year, due to fall risk. 4.Acute on chronic diastolic heart failure exacerbation. We will continue with daily weights, monit or I's and O's, and continue with fluid-restricted diet. Recent echocardiogram in November of 2017 sh ows EF of 40-45%. The patient has diastolic and systolic dysfunction. 5.Mixed metabolic disorder. A pH is 7.51; however, lactate is also elevated. We will repeat lactat e level. Doubt sepsis. Procalcitonin is negative. 6.Possible pneumonia. The patient does have elevated WBC count, cough, and congestion. We will cov er with IV antibiotics. 7.Cellulitis of the left lower extremity. We will add broad-spectrum IV antibiotics and obtain cult ures. 8.Coronary artery disease, rosebud artery, rosebud heart, status post stent, without angina. 9.Essential hypertension. 10.Mixed hyperlipidemia. 11.Generalized osteoarthritis. 12.GERD without esophagitis. 13.GI and DVT prophylaxis addressed. Admit the patient to ICU, place as inpatient. Code status is full. Overall, guarded prognosis. /OLUL Voice ID: [id number]
[2018-01-20 05:20] LABS: Absolute Lymphocytes (CBC) 0.6 K/uL (0.7-4.9); Absolute Monocytes 0.1 K/uL (0.1-1.3); Absolute Neutrophil 7.1 K/uL (1.8-8.0); Basophils % 0.1 % (0-1.3); Hematocrit 30.8 % (36.0-45.0); Lymphocytes % 7.7 % (15.3-44.8); MCH 28.5 pg (27.0-35.0); MPV 8.2 fL (7.6-11.3); Monocytes % 1.6 % (3.3-12.3); RBC Red Blood Cell Count 3.55 M/uL (3.86-4.86)
[2018-01-20 05:42] LABS: Albumin 2.6 g/dL (3.4-5.0); Bilirubin Total 0.3 mg/dL (0.2-1.0); Potassium 4.1 mmol/L (3.5-5.1); Protein, Total 6.4 g/dL (6.4-8.2)
[2018-01-20 05:50] LABS: Blood Morphology Comment NOTED (NOT SEEN); Ovalocytes 3+; Platelet Estimate ADEQ
[2018-01-20] MEDS: FUROSEMIDE 100 MG/10 ML VIAL IV SCH ×2 (06:21→18:35)
[2018-01-20] MEDS: ACETAMINOPHEN 500 MG TAB PO PRN ×2 (07:20→15:34)
[2018-01-20] MEDS ORDERED: METOPROLOL XL 50 MG TAB PO SCH (09:00)
[2018-01-20] MEDS: VANCOMYCIN 1.25 GM in NA CHLORIDE 0.9% 250 ML IVPB SCH (09:00)
[2018-01-20] MEDS ORDERED: HOME MED 1 EA UNK (Umeclidinium Bromide [Incruse Ellipta] 62.5 MCG) IH SCH (09:30)
[2018-01-20 10:18] LABS: Arterial Blood Carboxyhemoglob 1.8 % (0-1.5); Blood Gas Oxyhemoglobin 90.4 % (94-97); Blood O2 Saturation 92.3 % (92-98.5)
--- NOTE | 2018-01-20 10:28 | P.CNS ---
Date of Consult: 01/20/18 Chief Complaint: Respiratory failure diarrhea History of Present Illness: Patient is 77 years of age well known to me recurrent hospital admissions she was diagnosed and treated for a Pseudomonas infection on December 14 this year developed diarrhea for the past 7 days he has persistent respiratory problems patient has progressive pulmonary fibrosis recently seen in my hospital for lower extremity edema and advised to increase the dose of her spironolactone edema has resolved. Patient also has electrolyte abnormalities and was in rapid AFib Allergies Latex, Natural Rubber Allergy (Mild, Verified 11/05/16 23:23) Hives/Rash Home Medications: Albuterol Sulfate [Proair Hfa] 2 inh IH QIDP PRN 01/19/18 Aspirin [Adult Aspirin] 81 mg PO DAILY 01/19/18 Atorvastatin Calcium [Lipitor] 1 tab PO DAILY 01/19/18 Calcium + Vitamin D 500mg-125 1 tab PO DAILY 01/19/18 Furosemide [Lasix] 80 mg PO DAILY 01/19/18 Guaifenesin/Dextromethorphan [Mucinex Dm ER 600-30 mg Tablet] 1 each PO Q12H Ipratropium [place] 2.5 ml IH QIDP PRN 01/19/18 Metoprolol Succinate [Toprol Xl] 50 mg PO DAILY 01/19/18 Mometasone Furoate [Nasonex] 2 sprays NS DAILY 01/19/18 Pantoprazole [Protonix Tab] 40 mg PO DAILY 01/19/18 Perforomist 20 Mcg/2 Ml 2 ml NEB BID 01/19/18 Spironolactone [Aldactone] 25 mg PO DAILY 01/19/18 Spironolactone [Aldactone] 50 mg PO BEDTIME 01/19/18 Theophylline Anhydrous [Antione-24] 200 mg PO DAILY 01/19/18 Umeclidinium [place] [Incruse Ellipta] 62.5 mcg IH Q24H 01/19/18 predniSONE [Deltasone] 5 mg PO DAILY 01/19/18 - Past Medical/Surgical History Diabetic: No -: CAD with [place] w/ stent x2 01/13/2016 -: HTN -: COPD with steroid dependence -: Hyperlipidemia -: Arthritis -: Cataracts -: GERD -: CHF -: Former smoker -: pulmonary fibrosis -: Appendectomy -: Cholecystectomy -: Hysterectomy -: niles cataract sx -: Cardiac stents Psychosocial/ Personal History: Patient lives with her son. She is a . She has 3 children. - Family History Father Medical History: Hypertension, Liver disease, Kidney disease Notes: cirrohsis Mother Medical History: Heart disease, Lung disease Notes: [place] - Social History Alcohol use: No CD- Drugs: No Caffeine use: Yes Place of Residence: Home Review of Systems General: Weakness Respiratory: Cough, Shortness of Breath Physical Examination Temp Pulse Resp BP Pulse Ox 97.6 F 110 H 23 H 124/67 95 01/20/18 00:00 01/20/18 08:00 01/20/18 08:00 01/20/18 08:00 01/20/18 08:00 General: Alert, Oriented x3, Moderate distress Neck: Supple Respiratory: Crackles/rales (Extensive bilateral crackles) Cardiovascular: No edema, Irregular heart rate/rhythm Gastrointestinal: Normal bowel sounds, Soft and benign Laboratory Data (last 24 hrs) 01/19/18 13:37: Lipase 123 01/19/18 13:37: PT 14.5 H, INR 1.23 01/19/18 13:37: WBC 17.5 H, Hgb 11.3 L, Hct 35.4 L, Plt Count 372 01/19/18 13:37: Sodium 142, Potassium 3.1 L, BUN 10, Creatinine 0.80, Glucose 118 H, Magnesium 2.0 D, Total Bilirubin 0.5, AST 23, ALT 18, Alkaline Phosphatase 96 - Problems (1) Interstitial lung disease Current Visit: No Status: Acute Plan: Patient is 77 years of age admitted with Kwasi she has progressive pulmonary fibrosis her edema has now resolved continue with diuretics no evidence of an infection so far Dc all antibiotics Dc steroids (2) Atrial fibrillation, new onset Onset Date: 12/12/17 Current Visit: No Status: Acute Plan: Cardiac evaluation rate control and anticoagulation CONSUL CARDIOLOGY FOR ATRIAL FIBRILLATION
[2018-01-20] MEDS: SPIRONOLACTONE 25 MG TABLET PO SCH ×2 (11:04→21:48)
[2018-01-20] MEDS: PANTOPRAZOLE 40MG TABLET PO SCH (11:05)
[2018-01-20] MEDS: ENOXAPARIN 60 MG/0.6 ML SQ SCH ×2 (11:05→21:49)
[2018-01-20] MEDS: ASPIRIN EC 81 MG TAB PO SCH (11:05)
[2018-01-20] MEDS: MUCINEX DM 12HR.SR TAB PO SCH ×2 (13:01→21:47)
[2018-01-20] MEDS: ONDANSETRON 4 MG/2 ML VIAL IV PRN (13:51)
--- NOTE | 2018-01-20 14:41 | PN ---
Date of Progress Note: 01/20/2018 Subjective: The patient seen and examined, chart reviewed, and case discussed with RN and Dr. Pina. The patient states her breathing is better, however, still requiring BiPAP and gets hypoxic off BiPAP, still in atrial fibrillation with controlled ventricular rate, however, with minimal exertion rate goes up. Review of Systems: Negative except as above. Medications: List reviewed. Physical Examination: Vital Signs: Temperature 97.6, heart rate 101, blood pressure 115/73, respirations 20, O2 97% on BiPAP, 35% FiO2. General: Awake, alert, oriented x3. Ill-appearing elderly female, frail. CV: S1 and S2, irregularly irregular. Peripheral pulses weak bilaterally. Respiratory: Diminished breath sounds. Some rhonchi heard. Mild wheezing. The patient is slightly tachypneic. No use of accessory muscles. Gastrointestinal: Abdomen is soft, nontender, nondistended. Positive bowel sounds. Extremities: No clubbing, cyanosis, or edema. Neurologic: Nonfocal. Laboratory Data: Sodium 139, potassium 4.1, chloride 97, CO2 of 36, BUN 13, creatinine 0.8, glucose 123, calcium 8.6, albumin 2.6. ABG; pH 7.5, pCO2 45.6, pO2 63, bicarb 35. WBC 7.9, H and H 10.1 and 30.8, platelets 293, neutrophils 90%, 4% bands. Cultures pending. Assessment And Plan: A 77-year-old female with: 1. Kjmav-cl-dxudrfy respiratory failure, still on BiPAP. The patient has pulmonary fibrosis, likely secondary to chronic obstructive pulmonary disease and congestive heart failure. Appreciate Dr. Pina's input. He does not feel that there is any infection. Antibiotics have been discontinued. 2. Acute chronic obstructive pulmonary disease exacerbation. We will continue nebulizer treatments. Wean off steroids. 3. Atrial fibrillation with rapid ventricular response, paroxysmal. The patient was taken off anticoagulation due to fall risk previously. The patient is still having RVR with minimal exertion. We will consult Cardiology. Continue beta-isi. 4. Yriua-bz-bmtnmgg systolic heart failure exacerbation. Continue daily weights, fluid restricted diet. Recent echocardiogram shows EF of 40-45%. 5. Mixed metabolic disorder. 6. Left lower extremity erythema is improved. No growth in the cultures. I will consider switching to oral. May be related to chronic venous stasis changes. 7. Coronary artery disease, [place] artery and [place] heart status post stent without angina. 8. Essential hypertension. 9. Mixed hyperlipidemia. 10. Generalized osteoarthritis. 11. Gastroesophageal reflux disease without esophagitis. PPI. 12. Gastrointestinal and deep venous thrombosis prophylaxis addressed. Plan: Consult Cardiology. Continue monitor in ICU setting. BEN Voice ID: [id number] Report ID: [id number]
--- NOTE | 2018-01-20 15:41 | CON ---
History Of Present Illness: Mrs. Parada is 77. She came to the hospital with dyspnea and is found to have atrial fibrillation. This is not her first episode of AFib. We do not know how many she might have had. She has severe lung disease, mostly pulmonary fibrosis, probably some obstructive lung disease as well. When her lungs get worse, she gets more bronchodilators, more Theophylline and usually goes into AFib. She is in AFib now. Medications: Her outpatient medications have been ipratropium, Perforomist, albuterol, prednisone, Incruse Ellipta, spironolactone, metoprolol, furosemide 80 once a day, Atorvastatin 40, aspirin, Protonix, Theophylline and calcium with vitamin D. Social History: She quit smoking more than 20 years ago. Allergies: SHE IS ALLERGIC TO LATEX AND OTHER NATURAL RUBBERS. SHE HAS A HISTORY OF AN INTRACORONARY STENT, RIGHT CORONARY, SEVERAL YEARS AGO. SHE IS NOT HAVING ANGINA OR ANY SYMPTOMS OF UNSTABLE ANGINA. Physical Examination: General: She appears to be chronically ill, older than her stated age. HEENT: Red plethoric facies. Lungs: Decreased breath sounds everywhere. No wheezes. Fine crackles throughout most of the lung [place]. Heart: Irregularly irregular, about 120 beats per minute. Abdomen: Soft. Extremities: Diminished distal pulses. Trace edema. Diagnostic Data: EKG shows AFib. I will recommend that we stop her metoprolol and instead give her Betapace to see if that will help revert her to normal rhythm. Thank you very much for your kind referral of Mrs. Parada. I will follow her with you. JAIR Voice ID: [id number] Report ID: [id number] GEE
[2018-01-20] MEDS ORDERED: Levofloxacin 750mg IV 750 MG/150 ML BAG IV SCH (17:00)
[2018-01-20] MEDS: SOTALOL HCL 80 MG TAB PO SCH (18:35)
[2018-01-20 19:34] VITALS: BMI 20.6
[2018-01-20] MEDS: predniSONE 10 MG TAB PO SCH (21:49)
[2018-01-20] MEDS: ATORVASTATIN 40 MG TAB PO SCH (21:49)
[2018-01-21] MEDS: LEVALBUTEROL 0.63 MG/3 ML NEB NEB SCH ×4 (00:40→19:54)
[2018-01-21] MEDS: IPRATROPIUM BROM 0.5MG/2.5ML NEB SCH ×6 (00:40→19:54)
[2018-01-21 05:18] LABS: Absolute Monocytes 0.8 K/uL (0.1-1.3); Absolute Neutrophil 14.4 K/uL (1.8-8.0); Basophils % 0.1 % (0-1.3); Hematocrit 30.9 % (36.0-45.0); Lymphocytes % 6.3 % (15.3-44.8); MCV 87.5 fL (80-100); MPV 7.9 fL (7.6-11.3); RBC Red Blood Cell Count 3.53 M/uL (3.86-4.86)
[2018-01-21 05:32] LABS: Albumin 2.7 g/dL (3.4-5.0); Bilirubin Total 0.3 mg/dL (0.2-1.0); Potassium 3.7 mmol/L (3.5-5.1); Protein, Total 6.2 g/dL (6.4-8.2)
[2018-01-21 05:55] LABS: Blood Morphology Comment NOTED (NOT SEEN); Ovalocytes 1+; Platelet Estimate ADEQ
[2018-01-21] MEDS: KCL 20 MEQ/100 mL IVPB 20 MEQ/100 ML BAG IV SCH ×2 (06:00→06:31)
[2018-01-21] MEDS: FUROSEMIDE 100 MG/10 ML VIAL IV SCH ×2 (06:30→17:15)
[2018-01-21] MEDS: SOTALOL HCL 80 MG TAB PO SCH ×2 (06:30→17:14)
[2018-01-21] MEDS: PANTOPRAZOLE 40MG TABLET PO SCH (06:30)
[2018-01-21] MEDS: predniSONE 10 MG TAB PO SCH ×2 (08:36→20:15)
[2018-01-21] MEDS: ENOXAPARIN 60 MG/0.6 ML SQ SCH ×2 (08:36→20:15)
[2018-01-21] MEDS: SPIRONOLACTONE 25 MG TABLET PO SCH ×2 (08:36→20:14)
[2018-01-21] MEDS: ASPIRIN EC 81 MG TAB PO SCH (08:37)
[2018-01-21] MEDS: MOMETASONE FUROATE NS SCH (08:37)
[2018-01-21] MEDS ORDERED: POTASSIUM CL SA 10 MEQ TAB PO ONE (09:00)
[2018-01-21] MEDS ORDERED: POTASSIUM 25 MEQ EFFERV TAB PO ONE (09:00)
[2018-01-21] MEDS ORDERED: HOME MED 1 EA UNK (Theophylline Anhydrous [Theo-24] 200 MG) PO SCH (09:00)
[2018-01-21] MEDS: MUCINEX DM 12HR.SR TAB PO SCH ×2 (09:40→20:14)
--- NOTE | 2018-01-21 16:06 | PN ---
Mrs. Parada remains in atrial fibrillation. She is much more comfortable. Heart rate is 73 to 95. Blood pressure is good. If atrial fibrillation continues, we will consider cardioversion tomorrow. I am hopeful that the medicines we have started will change her rhythm without a direct current car dioversion. Thank you very much. JAIR Voice ID: [id number] Report ID: [id number]
[2018-01-21] MEDS: ACETAMINOPHEN 500 MG TAB PO PRN (16:17)
[2018-01-21] MEDS: ATORVASTATIN 40 MG TAB PO SCH (20:15)
--- NOTE | 2018-01-21 21:33 | PN ---
Date of Progress Note: 01/21/2018 Subjective: The patient is seen and examined. Chart reviewed and case discussed with RN. The patient is doing significantly better, now off BiPAP, converted to sinus rhythm with Betapace. Medication list reviewed. Physical Examination: Vital Signs: Temperature 98.4, heart rate 82, blood pressure 129/66, respirations 32, O2 is 96% on 3 L via nasal cannula. General: Awake, alert, oriented x3. Elderly female, somewhat ill-appearing. CV: S1, S2. Regular rate and rhythm. Peripheral pulses weak bilaterally. Respiratory: Somewhat diminished breath sounds, however, improving. Some mild wheezing heard. Gastrointestinal: Abdomen is soft, nontender, nondistended. Positive bowel sounds. Extremities: No clubbing, cyanosis, or edema. Skin: No erythema. Normal skin turgor. Neurologic: Nonfocal. Laboratory Data: Sodium 139, potassium 3.7, chloride 97, CO2 of 38, BUN 18, creatinine 0.9, glucose 91, calcium 8.6, magnesium 2.2, albumin 2.7. WBC 16.2, H and H of 9.9 and 30.9, platelets 301, neutrophils 88%, bands 3%. Blood cultures, no growth to date. Sputum cultures show reduced quantity of respiratory augustus Assessment And Plan: A 77-year-old female. 1. Vkpkt-rs-gpmonuy respiratory failure, now off BiPAP, likely secondary to pulmonary fibrosis, chronic obstructive pulmonary disease, congestive heart failure, improving, now back to baseline with nasal cannula 3 L. 2. Acute chronic obstructive pulmonary disease exacerbation. We will continue nebulizer treatments. Wean off steroids. 3. Atrial fibrillation with rapid ventricular response, now back to sinus rhythm, paroxysmal. The patient was previously on anticoagulants but was taken off due to fall risk. Appreciate Dr. Rivera' input. 4. Cznmv-ku-reduzvy systolic heart failure exacerbation. Echocardiogram shows EF 40% to 45%, maybe combined systolic and diastolic dysfunction. We will continue fluid restriction. Daily weights. 5. Left lower extremity erythema, resolved, likely due to venous stasis changes. Doubt cellulitis. 6. Coronary artery disease, [place] artery and [place] heart status post stent without angina. 7. Essential hypertension. 8. Hyperlipidemia, continue statin. 9. Osteoarthritis, stable. 10. Gastroesophageal reflux disease without esophagitis. Continue PPI. 11. Neutrophilic leukocytosis, likely secondary to steroids. We will continue to monitor. The patient is now off antibiotics. 12. Gastrointestinal and deep venous thrombosis prophylaxis addressed. Plan: Step down from ICU. Likely discharge in the next 24-48 hours depending on clinical response. /GRECIA Voice ID: [id number] Report ID: [id number] MTDD
[2018-01-22] MEDS: IPRATROPIUM BROM 0.5MG/2.5ML NEB SCH ×4 (01:03→11:25)
[2018-01-22] MEDS: LEVALBUTEROL 0.63 MG/3 ML NEB NEB SCH ×3 (01:04→11:25)
[2018-01-22 04:49] LABS: MCH 28.3 pg (27.0-35.0); MCV 89.3 fL (80-100); RBC Red Blood Cell Count 3.51 M/uL (3.86-4.86)
[2018-01-22 05:01] LABS: Absolute Lymphocytes (CBC) 0.9 K/uL (0.7-4.9); Absolute Monocytes 0.5 K/uL (0.1-1.3); Absolute Neutrophil 7.3 K/uL (1.8-8.0); Basophils % 0.1 % (0-1.3); Eosinophils % 0.3 % (0-4.4); Hematocrit 31.4 % (36.0-45.0); Lymphocytes % 9.9 % (15.3-44.8); MPV 8.2 fL (7.6-11.3); Monocytes % 5.6 % (3.3-12.3)
[2018-01-22 06:04] LABS: Albumin 2.5 g/dL (3.4-5.0); Bilirubin Total 0.4 mg/dL (0.2-1.0); Potassium 3.4 mmol/L (3.5-5.1); Protein, Total 5.8 g/dL (6.4-8.2)
[2018-01-22] MEDS: SOTALOL HCL 80 MG TAB PO SCH (06:22)
[2018-01-22] MEDS: FUROSEMIDE 100 MG/10 ML VIAL IV SCH (06:22)
[2018-01-22] MEDS: PANTOPRAZOLE 40MG TABLET PO SCH (06:23)
[2018-01-22] MEDS ORDERED: POTASSIUM 25 MEQ EFFERV TAB PO ONE (07:43)
[2018-01-22] MEDS: ENOXAPARIN 60 MG/0.6 ML SQ SCH (08:53)
[2018-01-22] MEDS: ASPIRIN EC 81 MG TAB PO SCH (08:54)
[2018-01-22] MEDS: SPIRONOLACTONE 25 MG TABLET PO SCH (08:54)
[2018-01-22] MEDS: MOMETASONE FUROATE NS SCH (08:54)
[2018-01-22] MEDS: predniSONE 10 MG TAB PO SCH (08:54)
[2018-01-22 11:05] VITALS: O2SAT 96
[2018-01-22 12:10] VITALS: BP 117/60; TEMP 97.6
--- NOTE | 2018-01-22 12:42 | P.PN ---
Subjective Date of Service: 01/22/18 Chief Complaint: Atrial fibrillation Subjective: Improving (Patient is doing much better patient desaturates when sitting up and ambulating rate is now under control shortness of breath back to her baseline) Review of Systems General: Weakness Respiratory: Shortness of Breath Physical Examination - Vital Signs Temperature: 97.6 F Blood Pressure: 117/60 Pulse: 80 Respirations: 24 Pulse Ox (%): 96 - Physical Exam General: Alert, Oriented x3, Cooperative Neck: Supple Respiratory: Crackles/rales (Bilateral extensive crackles) Cardiovascular: No edema Assessment & Plan - Problems (Diagnosis) (1) Interstitial lung disease Current Visit: No Status: Acute Plan: Patient has progressive interstitial lung disease (2) Atrial fibrillation, new onset Onset Date: 12/12/17 Current Visit: No Status: Acute Plan: Rate is not under control can be discharged home on sotalol anticoagulation
[2018-01-22] MEDS ORDERED: APIXABAN 5 MG TABLET PO SCH (21:00)
--- NOTE | 2018-01-23 11:53 | DS ---
Date of Discharge: 01/22/2018 Consultants: 1. Dr. Pina, Pulmonology. 2. Dr. Rivera, Cardiology. Admitting Diagnoses: 1. Crwqf-be-whdsmhk respiratory failure, on BiPAP. 2. Acute chronic obstructive pulmonary disease exacerbation. 3. Atrial fibrillation with rapid ventricular rate. 4. Odzau-xv-rqxtayy diastolic heart failure exacerbation. 5. Mixed metabolic disorder. 6. Possible pneumonia. 7. Cellulitis of the left lower extremity. 8. Coronary artery disease, [place] artery, [place] heart, status post stent, without angina. 9. Essential hypertension. 10. Mixed hyperlipidemia. 11. Generalized osteoarthritis. 12. Gastroesophageal reflux disease without esophagitis. Discharge Diagnoses: 1. Gfcal-vi-qtwrdgy respiratory failure, off BiPAP. 2. Acute chronic obstructive pulmonary disease exacerbation, improved. 3. Atrial fibrillation with rapid ventricular rate, now in sinus rhythm, on Betapace and anticoagulation. 4. Aqgkp-vm-olmrcwq diastolic and systolic heart failure exacerbation. EF 40 % to 45%. 5. Left lower extremity erythema, resolved, not cellulitis, likely due to chronic venous stasis changes. 6. Coronary artery disease, [place] artery, [place] heart, status post stent, without angina. 7. Essential hypertension. 8. Hyperlipidemia, on statin. 9. Generalized osteoarthritis. 10. Gastroesophageal reflux disease without esophagitis. 11. Neutrophilic leukocytosis secondary to steroids. Hospital Course: The patient is a 77-year-old female with multiple comorbid conditions including CHF; COPD on supplemental oxygen; who comes in with shortness of breath. The patient was recently admitted to the hospital for pneumonia secondary to Pseudomonas. The patient was in respiratory distress, also in AFib with RVR, rate of 140s to 170s. She required BiPAP initially. She was placed in the ICU for close monitoring. Her chest x-ray showed extensive bilateral pulmonary opacities, representing pulmonary fibrosis. She was found to have pulmonary edema with mild nqmwj-rb-ddoptgr heart failure. Her recent echocardiogram shows EF of 40% to 45%, likely has combined diastolic and systolic dysfunction. The patient was also seen by Dr. Rivera of Cardiology. The patient was started on Betapace and taken off metoprolol. She converted to sinus rhythm. She was anticoagulated. Previously, the patient had been taken off anticoagulation due to fall risks, however, it is felt that the patient's benefit outweighs the risks and therefore we will continue with anticoagulation. The patient overall did well. She was not thought to have any pneumonia. Antibiotics were discontinued. Erythema of her left lower extremity resolved once the edema resolved. It was likely due to venous stasis changes. The patient's cultures remained negative. Her sputum culture grew out reduced quantity of respiratory augustus. The patient overall did well. She was able to be taken off BiPAP. Her white count normalized. Her steroids were tapered down. The patient was then back to her baseline. The patient was then cleared for discharge from Cardiology and Pulmonology standpoint. She was discharged home in a stable condition. Followup: Follow up with primary care physician in 2 to 3 days. Follow up with audio visual aide, Dr. Rivera, in 2 weeks. Follow up with chemical engineering intern, Dr. Pina, in 2 weeks. Return to ER for worsening condition. Diet: Low sodium, 1500 mL fluid restriction. Activity: Fall precautions. No strenuous activity. Physical Examination: General: Awake, alert, oriented x3. An elderly female, frail. CV: S1, S2 with regular rate and rhythm. Peripheral pulses are weak bilaterally. Respiratory: Moving air well bilaterally. Minimal wheezing. Gastrointestinal: Abdomen is soft, nontender, nondistended. Positive bowel sounds. Extremities: No clubbing, cyanosis, or edema. Neurologic: Nonfocal. Total time spent discharging the patient was 37 minutes. BEN Voice ID: [id number] Report ID: [id number]
== END 2018-01-22 15:18 | disposition home or self-care (01) | DRG 189 ==
LOC: ER 12:03 → ERHOLD 17:27 → 3RD-ICU 19:50 → 4TH 01-21 11:05
PROVIDERS: ADMIT Family Medicine; ATTEND Family Medicine
PROC: 5A09457 Assistance with Respiratory Ventilation, 24-96 Consecutive Hours, Continuous Positive Airway Pressure (ICD-10-PCS; principal; 2018-01-19)
DX: J96.21 Acute and chronic respiratory failure with hypoxia (principal); I50.43 Acute on chronic combined systolic (congestive) and diastolic (congestive) heart failure; J44.1 Chronic obstructive pulmonary disease with (acute) exacerbation; I25.10 Atherosclerotic heart disease of native coronary artery without angina pectoris; K21.9 Gastro-esophageal reflux disease without esophagitis; I11.0 Hypertensive heart disease with heart failure; E78.2 Mixed hyperlipidemia; I48.0 Paroxysmal atrial fibrillation; M15.9 Polyosteoarthritis, unspecified; D72.828 Other elevated white blood cell count; T38.0X5A Adverse effect of glucocorticoids and synthetic analogues, initial encounter; L53.9 Erythematous condition, unspecified; I25.2 Old myocardial infarction; J84.10 Pulmonary fibrosis, unspecified; Z95.5 Presence of coronary angioplasty implant and graft; Z91.040 Latex allergy status; Z99.81 Dependence on supplemental oxygen; Z79.82 Long term (current) use of aspirin; Z87.891 Personal history of nicotine dependence; Z79.51 Long term (current) use of inhaled steroids
CPT/HCPCS: 36415; 51702; 71045; 80048; 80053; 80076; 82805; 83605; 83690; 83735; 83880; 84145; 84484; 85025; 85610; 87040; 87070; 87205; 93005; 94640; 94660; 99285; J0696; J1650; J2405; J2920; J2930; J3370; J3475; J7512